=== PATIENT | female | born 1955 | race Caucasian/White ===

== ENCOUNTER 2022-10-21 07:56 | Emergency (ER) | payer MEDICARE, SELFPAY ==
[2022-10-21 08:10] VITALS: BP 138/56; PULSE 85; RESP 22; TEMP 37.1; O2SAT 97
--- NOTE | 2022-10-21 08:19 | ED_ITS ---
HPI - Abdominal Pain General: Chief Complaint: Abdominal Pain Stated Complaint: N/V, right side pain Time Seen by Provider: 10/21/22 08:08 Source: patient and family Mode of arrival: ambulatory Limitations: no limitations History of Present Illness: Patient is a 67-year-old male who presents to ED today with complaints of abdominal pain, nausea, vomiting that has been present over the past 3 to 4 day s. Patient states pain seems to be located to her right upper abdomen. She does not feel like this pain is affected by eating however admittedly has not ate a whole lot secondary to the nausea. No fevers but does report some chills. Denies changes in bowel movements but states she hasn't ate much to produce stool. Denies urinary symptoms. MD elicited complaint: abdominal pain and other (N/V) Pertinent past history: none Onset (ago): day(s) Pain Consistency: constant Location: Epigastric and RUQ Severity: moderate Quality: cramping and aching Radiation: none Migration to: no migration Exacerbating factors: nothing Relieving factors: nothing Associated Symptoms: Reports chills, nausea and vomiting; Denies change in bowel habits, diarrhea, dysuria, fever(s) and hematemesis Related Data: Patient : No Review of Systems Const: Reports: chills; Denies: fever(s), body aches, fatigue or malaise ENMT: Denies: throat pain, odynophagia, nasal discharge or nasal congestion Card: Denies: chest pain, swelling of feet/ankles or lightheadedness Resp: Denies: dyspnea, hemoptysis or chest congestion GI: Reports: abdominal pain, nausea and vomiting; Denies: hematemesis, diarrhea or change in bowel habits : Denies: flank pain, difficulty voiding, dysuria, urinary frequency or urinary urgency Musc: Denies: neck pain, back pain, extremity pain or joint pain Skin/Breast: Denies: rash Neuro: Denies: headache(s), numbness in extremities, weakness in extremities, sensory changes or difficulty walking PFS ED PFSH: Medical History Acquired scoliosis 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 Spondylosis Family History Mother CAD (coronary artery disease) Diabetes Hypertension Stroke Father CAD (coronary artery disease) Cancer Diabetes Grandfather Stroke Denies family history of Clotting disorder Dementia Hyperlipidemia Psychiatric illness Chronic kidney disease (CKD) Suicide Anesthesia complication Bleeding disorder Family history of premature coronary artery disease Lung disease Social History Smoking and tobacco status: current every day smoker Female Reproductive History: Spontaneous abortions: No Physical Exam Const: COMMON NORMALS: no acute distress, patient oriented x3, no limitations and alert GENERAL APPEARANCE: cooperative NUTRITIONAL APPEARANCE: cachectic and underweight (pts weight is 34 kg) ORIENTATION/CONSCIOUSNESS: Yes awake, Yes oriented to person, Yes oriented to place and Yes oriented to time HENMT: COMMON NORMALS: normocephalic and atraumatic HEAD & SCALP: normal to inspection, normocephalic and atraumatic Neck/C-Spine: GENERAL: Yes normal visual inspection Chest: COMMONS NORMALS: normal palpation of entire chest wall Resp: COMMON NORMALS: normal respiratory effort and clear to auscultation bilaterally AUSCULTATION: clear to auscultation bilaterally Cardio: COMMON NORMALS: regular rate and regular rhythm RATE: regular rate RHYTHM: regular rhythm GI: COMMON NORMALS: Normal to inspection, nondistended, normoactive bowel sounds present, Soft to palpation, No hepatosplenomegaly present and no masses INSPECTION: Yes normal to inspection AUSCULTATION: Yes normoactive bowel sounds PALPATION: Yes Soft to palpation, Yes Tenderness to palpation present (GI) (RUQ/epigastric ), No Guarding due to palpation present (GI), No Rigid due to palpation and Yes No hepatosplenomegaly present : COMMON NORMALS: Yes no CVA tenderness BLADDER/KIDNEY EXAM: Yes no CVA tenderness Back/Pelvis: COMMON NORMALS: no CVA tenderness Extremity: COMMON NORMALS: normal to inspection GENERAL: Yes normal exam except as noted Neuro: JORGE L COMA SCALE: document GCS findings Frierson coma scale eye opening: Spontaneous Jorge L coma scale verbal response: Orientated Frierson coma scale motor response: Obey commands Jorge L coma scale total score: 15 COMMON NORMALS: patient oriented x3 SENSORIUM/ORIENTATION: Yes alert, Yes oriented to person, Yes oriented to place and Yes oriented to time Skin: COMMON NORMALS: no rashes or lesions noted GENERAL SKIN EXAM: no rashes or lesions noted Course Vital Signs: Vital signs: Vital Signs Temperature 98.7 F 10/21/22 08:10 Pulse Rate 88 10/21/22 09:14 Respiratory Rate 22 H 10/21/22 08:10 Blood Pressure 149/48 10/21/22 09:57 Pulse Oximetry 98 10/21/22 09:57 Oxygen Delivery Me thod Room Air 10/21/22 09:57 MDM - Abdominal Pain Medical Decision Making Patient appears in no acute distress. Her vital signs are stable. Blood work overall is fairly unremarkable. She does have hematuria without evidence of infection. CT scan showing some mild fluid distention in her stomach and proximal small bowel with recommendations to correlate for gastroenteritis. This most likely is the etiology of her pain and nausea with vomiting. She was incidentally found to have bladder nodules that she will need a cystoscopy for to exclude neoplasm. She is an every day smoker so certainly she is at risk for bladder cancer. I think this most likely is where her hematuria is coming from. Patient herself has not noticed any gross hematuria at home. We will place the referral for case management to get her set up with urology. She will be discharged home with a prescription for Zofran. Recommend clear liquid diet and advance as tolerated. Recommend she follow-up with her PCP this week for reevaluation. Return ED precautions given. Lab Data 10/21/22 09:22 10/21/22 09:22 Labs/Radiology: Radiology Impressions Abdomen/Pelvis CT 10/21/22 08:29 IMPRESSION: 1. Nonvisualization of the gallbladder. No history of cholecystectomy provided. May be contracted due to nonfasting state. 2. Common bile duct is top normal to slightly enlarged. No obstruction identified otherwise. No intrahepatic dilatation. 3. Extensive atherosclerosis aorta. 4. Bilateral renal cysts. Cortical areas of thinning and scarring RIGHT kidney. 5. The appendix is not identified. 6. Mild fluid distention of the stomach and proximal small bowel. Correlate for gastroenteritis. 7. Intraluminal nodules projecting into the urinary bladder. Closely associated with the orifice of the ureters. The largest on the RIGHT measures 10 mm. Recommend cystoscopy to exclude neoplasm. Laboratory Results WBC 6.7 10^3/uL (4.0-10.0) 10/21/22 09:22 RBC 5.15 10^6/uL (4.1-5.3) 10/21/22 09:22 Hgb 14.6 g/dL (11.5-15.3) 10/21/22 09: Hct 43.0 % (37.0-47.0) 10/21/22 09: MCV 83.5 fl (81-99) 10/21/22 09: MCH 28.3 pg (28.0-34.0) 10/21/22 09: MCHC 34.0 g/dL (30.0-36.0) 10/21/22: RDW 13.4 % (12.1-15.1) 10/21/22 09: Plt Count 177 10^3/cmm (130-400) 10/21/22 09: MPV 10.7 fL (7.4-10.4) H 10/21/22 09: Neut % (Auto) 66.6 % 10/21/22 09: Lymph % (Auto) 23.3 % 10/21/22 09: [place] % (Auto) 9.9 % 10/21/22 09: Eos % (Auto) 0.1 % 10/21/22 09: Baso % (Auto) 0.0 % 10/21/22: Neut # (Auto) 4.48 10^3/uL (1.8-7.7) 10/21/22: Lymph # (Auto) 1.6 10^3/uL (0.8-4.8) 10/21/22 09: [place] # (Auto) 0.7 10^3/uL (0.2-0.9) 10/21/22: Eos # (Auto) 0.0 10^3/uL (0.0-0.8) 10/21/22 09: Baso # (Auto) 0.0 10^3/uL (0.0-0.1) 10/21/22: Nucleated RBC % (auto) 0 % 10/21/22: Nucleated RBCs # 0.0 /100WBC 10/21/22 09: Sodium 130 mmol/L (136-145) L 10/21/22 09: Potassium 3.5 mmol/L (3.5-5.1) 10/21/22 09: Chloride 89 mmol/L (98-107) L 04/17/23 09:22 Carbon Dioxide 27 mmol/L (22-29) 10/21/22 09:22 Anion Gap 17.5 (5-19) 10/21/22 09:22 BUN 27 mg/dL (8-23) H 10/21/22 09:22 Creatinine 0.5 mg/dL (0.5-0.9) 10/21/22 09:22 GFR Calculation 123.4 mL/min (90-130) 10/21/22 09:22 Glucose 137 mg/dL (65-115) H 10/21/22 09:22 Calculated Osmolality 277 mOsm/kg (285-295) L 10/21/22 09:22 Calcium 9.3 mg/dL (8.5-10.5) 10/21/22 09:22 Total Bilirubin 0.8 mg/dL (0.15-1.2) 10/21/22 09:22 AST 25 U/L (0-32) 10/21/22 09:22 ALT 21 U/L (0-33) 10/21/22 09:22 Alkaline Phosphatase 151 U/L (35-105) H 10/21/22 09:22 Total Protein 6.7 g/dL (6.6-8.7) 10/21/22 09:22 Albumin 3.6 g/dL (3.5-5.2) 10/21/22 09:22 Globulin 3.1 g/dL (1.3-4.6) 10/21/22 09:22 Lipase 36 U/L (13-60) 10/21/22 09:22 Urine Color Yellow (Yellow) 10/21/22 10:48 Urine Appearance Clear (CLEAR) 10/21/22 10:48 Urine pH 6 (5-7) 10/21/22 10:48 Ur Specific [place] 1.010 (1.005-1.030) 10/21/22 10:48 Urine Protein Neg (Negative) 10/21/22 10:48 Urine Glucose (UA) Norm (Normal) 10/21/22 10:48 Urine Ketones 1+ (Negative) H 10/21/22 10:48 Urine Blood 3+ (Negative) H 10/21/22 10:48 Urine Nitrate Negative (Negative) 10/21/22 10:48 Urine Bilirubin Neg (Negative) 10/21/22 10:48 Urine Urobilinogen Norm mg/dL (Negative) 10/21/22 10:48 Ur Leukocyte Esterase Negative (Negative) 10/21/22 10:48 Urine RBC 25-40 /hpf (0-2) H 10/21/22 10:48 Urine WBC 0-4 /hpf (0-5) H 10/21/22 10:48 Ur Squamous Epith Cells 0-4 /hpf (0-5) H 10/21/22 10:48 Amorphous Sediment Not Reportable 10/21/22 10:48 Urine Bacteria Trace /hpf (NONE) 10/21/22 10:48 Discharge Plan Discharge Patient Disposition: Home Clinical Impression: Lesion of bladder, Gastroenteritis Condition: Stable Prescriptions: New ondansetron 4 mg tablet,disintegrating 4 mg PO Q8H PRN (Reason: nausea and vomiting) Qty: 14 0RF No Action fluticasone propionate [Allergy Relief (fluticasone)] 50 mcg/actuation sp ray,suspension 1 spray intranasal BID Rx Instructions: Shake liquid and use 1 spray in each nostril twice daily Discharge Orders: Discharge ED (Routine); Ordered 10/21/22 Ordered By: Ema Bocanegra Referrals: Storm Menchaca DO [Primary Care Provider] - Patient Instructions: Gastroenteritis (DC) Activity Restrictions/Additional Instructions: As we discussed I recommend a clear liquid diet over the next 24 to 48 hours and advance as tolerated. Please follow-up with your primary care provider this week for reevaluation. You need to return to the emergency department for worsening or severe abdominal pains, repetitive episodes of vomiting, diarrhea, fevers, or any other concerns you may have. As we discussed your CT scan showed incidental findings of bladder nodules. Case management should contact you this week to help you set a urology follow-up appointment for cystoscopy and further evaluation of these. You need to return to the emergency department for inability to urinate. Coding Level of Care Code ED [employer] Operator for Aarti Yang
--- NOTE | 2022-10-21 08:29 | CT_ITS ---
WS: [id number] CT ABDOMEN AND PELVIS WITH CONTRAST HISTORY: RIGHT upper quadrant pain with nausea and vomiting. TECHNIQUE: Imaging performed of the abdomen and pelvis with IV contrast. Single phase imaging of the abdomen. Coronal and sagittal reformats are submitted. All CT scans at [facility] use at [address] one of these dose optimization techniques: automated exposure control; mA and/or kV adjustment per patient size (includes targeted exams where dose is matched to clinical indication); or iterative re construction. IV CONTRAST: Omnipaque 350; 100 mL IV. Oral contrast: No DLP: 260.44 mGy.cm COMPARISON: None available. Lower thorax: Lung bases are clear. Heart is normal size. Small hiatal hernia. Liver/biliary system: Normal size liver. Mild periportal edema. Common bile duct is mildly prominent than 9 mm but tapers normally. Gallbladder: Gallbladder is very difficult to identified. Dilated small bowel loops and large renal c ysts. Gallbladder may be contracted. No history of a prior cholecystectomy. Pancreas: Atrophied pancreas. No duct dilatation. Spleen: Normal size spleen with several granulomata. Adrenal glands: Normal. Right kidney: No renal obstruction. There are multiple cysts associated with the RIGHT kidney. Larges t cyst is partially exophytic extending laterally from the kidney measuring 4.4 x 4.3 cm. The additio nal areas of cortical thinning and scarring throughout the kidney. Nonobstructing 1.2 cm calcificatio n in the upper pole. Left kidney: Normal size kidney. Numerous cortical cysts. No obstruction. Aorta: Moderate atherosclerosis with no aneurysm. Extensive plaque with mild stenosis in the distal a juan ramon. No aneurysm. Calcified plaque extends into the iliac arteries. Lymphadenopathy: None. Free fluid: None. GI tract: Limited evaluation of the GI tract without IV contrast. Very little fat the loop s of GI tract. Stomach is normally distended. Fluid-filled loops of small bowel. Proximal duodenum is fluid-filled. No obstructive pattern. Mild air distention of the colon with overlapping loops. The a ppendix is not identified. Abdominal wall: Unremarkable abdominal wall. No hernia. Pelvis: Urinary bladder is well distended. Small nodules protrude into the urinary bladder. These are at the base of the expected location of the ureters. The largest on the RIGHT measures 10 mm. Uterus and ovaries are not identified. No prior surgical history was provided. Bones: Minimal curvature lumbar spine. CT/CT abdomen pelvis w con* [id number] IMPRESSION: 1. Nonvisualization of the gallbladder. No history of cholecystectomy provided . May be contracted due to nonfasting state. 2. Common bile duct is top normal to slightly enlarged. No obstruction identif ied otherwise. No intrahepatic dilatation. 3. Extensive atherosclerosis aorta. 4. Bilateral renal cysts. Cortical areas of thinning and scarring RIGHT kidney . 5. The appendix is not identified. 6. Mild fluid distention of the stomach and proximal small bowel. Correlate fo r gastroenteritis. 7. Intraluminal nodules projecting into the urinary bladder. Closely associate d with the orifice of the ureters. The largest on the RIGHT measures 10 mm. Rec ommend cystoscopy to exclude neoplasm.
[2022-10-21] MEDS: ondansetron 2 mg/ML SDV 2 mL IVP (09:10)
[2022-10-21] MEDS: morphine 4 mg/mL SDV 1 mL 2 MG IVP (09:11)
[2022-10-21] MEDS: sodium chloride 0.9% 500 ML IV (09:13)
[2022-10-21 09:14] VITALS: BP 150/53; PULSE 88; O2SAT 95
[2022-10-21 09:28] LABS: Eosinophils % 0.1 %; Hemoglobin 14.6 g/dL (11.5-15.3); Lymphocytes # 1.6 10^3/uL (0.8-4.8); Lymphocytes % 23.3 %; Mean Corpuscular Hemoglobin 28.3 pg (28.0-34.0); Mean Corpuscular Volume 83.5 fl (81-99); Mean Platelet Volume 10.7 fL (7.4-10.4); Monocytes # 0.7 10^3/uL (0.2-0.9); Monocytes % 9.9 %; Neutrophils # 4.48 10^3/uL (1.8-7.7); Neutrophils % 66.6 %; Nucleated Red Blood Cells % 0 %; Platelet Count 177 10^3/cmm (130-400); Red Blood Count 5.15 10^6/uL (4.1-5.3); Red Cell Distribution Width 13.4 % (12.1-15.1); White Blood Count 6.7 10^3/uL (4.0-10.0)
[2022-10-21 09:44] LABS: Alanine Aminotransferase 21 U/L (0-33); Albumin Level 3.6 g/dL (3.5-5.2); Alkaline Phosphatase 151 U/L (35-105); Blood Urea Nitrogen 27 mg/dL (8-23); Calcium 9.3 mg/dL (8.5-10.5); Carbon Dioxide 27 mmol/L (22-29); Chloride 89 mmol/L (98-107); Globulin 3.1 g/dL (1.3-4.6); Glomerular Filtration Rate 123.4 mL/min (90-130); Glucose 137 mg/dL (65-115); Lipase 36 U/L (13-60); Osmolality Calculated 277 mOsm/kg (285-295); Sodium 130 mmol/L (136-145); Total Bilirubin 0.8 mg/dL (0.15-1.2); Total Protein 6.7 g/dL (6.6-8.7)
[2022-10-21 09:49] LABS: Anion Gap 17.5 (5-19); Aspartate Amino Transferase 25 U/L (0-32); Potassium 3.5 mmol/L (3.5-5.1)
[2022-10-21 09:57] VITALS: BP 149/48; O2SAT 98
[2022-10-21] MEDS: iohexol 350 mg/mL 500 mL Btl (per mL) IV (10:13)
[2022-10-21 11:17] LABS: Glucose Urine UA Norm (Normal); Protein Urine Neg (Negative); Urine Appearance Clear (CLEAR); Urine Color Yellow (Yellow); pH Urine 6 (5-7)
[2022-10-21 11:18] LABS: Bilirubin Urine Neg (Negative); Blood Urine 3+ (Negative); Ketones Urine 1+ (Negative); Leukocyte Esterase Urine Negative (Negative); Nitrate Urine Negative (Negative); Urobilinogen Urine Norm (Negative)
[2022-10-21 11:20] LABS: Add Urine Microscopic? YES; RBC Urine 25-40 /hpf (0-2)
[2022-10-21 11:21] LABS: Add Urine Culture? Yes; Bacteria Urine TRACE /hpf; Squamous Epithelial Cell Urine 0-4 /hpf (0-5); WBC Urine 0-4 /hpf (0-5)
[2022-10-21 11:56] VITALS: BP 149/50; O2SAT 96
--- NOTE | 2022-10-22 09:52 | DCPLANNER ---
Addendum entered by Nickie Jimenez 10/23/22 08:22: manager of quality received the following message from the urology front office staff regarding follow up appointment: Probably should send to Urology elsewhere. manager of quality called patient to inform patient of this, nurse case management called phone number [phone] - this number is not in service. Original Note: manager of quality had message to schedule a follow up appointment for patient with urology. manager of quality sent patients information to the front office staff at urology. Patients information will be printed and reviewed. Clinic will call patient with appointment information.
== END 2022-10-21 11:57 | disposition home or self-care (01) ==
PROVIDERS: Emergency Provider Physician Assistant; PCP Family Medicine
DX: K52.9 Noninfective gastroenteritis and colitis, unspecified (principal); N32.9 Bladder disorder, unspecified; F17.210 Nicotine dependence, cigarettes, uncomplicated
CPT/HCPCS: 74177; 80053; 81001; 83690; 85025; 87086; 96374; 96375; 99285; J2270; J2405; J7040; Q9967

== ENCOUNTER 2022-11-19 00:25 | Emergency (ER) | payer MEDICARE, SELFPAY ==
[2022-11-19 00:26] VITALS: BMI 18.3
--- NOTE | 2022-11-19 00:27 | XRR_ITS ---
PROCEDURE INFORMATION: Exam: XR Chest Exam date and time: 11/19/2022 12:49 AM Age: 67 years old Clinical indication: Chest pressure; Patient HX: C/O chest pain; Additional info: Cp TECHNIQUE: Imaging protocol: Radiologic exam of the chest. Views: 1 view. COMPARISON: CT abdomen pelvis w con* [id number] 10/21/2022 10:09 AM FINDINGS: Lungs: Emphysema. No consolidation. Pleural spaces: Unremarkable. No pleural effusion. No pneumothorax. Heart/Mediastinum: Unremarkable. No cardiomegaly. Bones/joints: Unremarkable. XR/XR chest 1V portable [id number] IMPRESSION: Negative for acute chest pathology.
--- NOTE | 2022-11-19 00:28 | ECG_ITS ---
[facility] Test Date: 2022-11-19 Pat Name: Aiyana Champion Department: Room: Gender: Female [employer] Clerk: : [id number] Requested By: Maame Landry Order Number: [id number] Jo MD: Stan Daniel M.D. Measurements Intervals [place] Rate: 109 P: 86 IL: 141 QRS: 62 QRSD: 77 T: -30 QT: 275 QTc: 372 Interpretive Statements SINUS TACHYCARDIA RIGHT ATRIAL ENLARGEMENT [0.3mV P-WAVE] LEFT ATRIAL ENLARGEMENT [-0.15mV P-WAVE IN V1/V2] POSSIBLE LEFT VENTRICULAR HYPERTROPHY [VOLTAGE CRITERIA PLUS LAE OR QRS WIDENING] POSSIBLE SEPTAL MYOCARDIAL INFARCTION , OF INDETERMINATE AGE [30 ms Q WAVE IN V1/V2] No previous ECG available for comparison Electronically Signed On 11-19-2022 16:56:07 CDT by Stan Daniel M.D. [email or web address]
[2022-11-19 00:29] VITALS: BP 136/55; PULSE 109; RESP 16; TEMP 37.1; O2SAT 99
--- NOTE | 2022-11-19 00:38 | ED_ITS ---
HPI - Chest Pain General: Chief Complaint: Chest Pain Stated Complaint: CHEST PAIN Time Seen by Provider: 11/19/22 00:27 History of Present Illness: 67-year-old female comes in today with complaints of chest pain for the last 2 hours. Patient reports nothing made the pain better or worsened. Patient reports the nitro that the EMS personnel did help. Patient reports that she had an episode of chest pain about 30 years ago that showed abnormality on her EKG but she was not diagnosed with heart problem at that time. Patient has chronic pain syndrome which she takes OxyContin 40 mg twice a day for. Patient's chronic pain is related to OPLL. Patient also reports that she has fibromyalgia. Patient is a daily smoker of tobacco. Patient denies lung disease. Patient's had a hysterectomy. 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 Spondylosis Family History Mother CAD (coronary artery disease) Diabetes Hypertension Stroke Father CAD (coronary artery disease) Cancer Diabetes Grandfather Stroke Denies family history of Clotting disorder Dementia Hyperlipidemia Psychiatric illness Chronic kidney disease (CKD) Suicide Anesthesia complication Bleeding disorder Family history of premature coronary artery disease Lung disease Social History Smoking and tobacco status: current every day smoker Female Reproductive History: Spontaneous abortions: No Physical Exam Const: COMMON NORMALS: alert HENMT: COMMON NORMALS: normocephalic HEAD & SCALP: normocephalic Neck/C-Spine: COMMON NORMALS: full ROM Resp: COMMON NORMALS: normal respiratory effort and clear to auscultation bilaterally AUSCULTATION: clear to auscultation bilaterally Cardio: COMMON NORMALS: regular rate and regular rhythm RATE: regular rate RHYTHM: regular rhythm GI: COMMON NORMALS: Soft to palpation and non-tender PALPATION: Yes Soft to palpation Extremity: COMMON NORMALS: no pedal edema Neuro: SENSORIUM/ORIENTATION: Yes alert Skin: COMMON NORMALS: turgor normal GENERAL SKIN EXAM: turgor normal Course Vital Signs: Vital signs: Vital Signs Temperature 98.8 F 11/19/22 00:29 Pulse Rate 102 H 11/19/22 00:59 Respiratory Rate 22 H 11/19/22 02:35 Blood Pressure 136/55 11/19/22 00:59 Pulse Oximetry 98 11/19/22 00:59 Oxygen Delivery Me thod Room Air 11/19/22 00:29 MDM - Chest Pain Medical Decision Making Patient comes in tonight for complaints of chest discomfort starting about 2 hours prior to arrival to the ER. Patient was given nitro in route to the ER and stated some improvement in pain. Patient appears nontoxic. Respirations are even lungs are clear to auscultation. Vital signs are normal except for some elevation in pulse at 110. Differential diagnosis includes ACS, pulmonary embolism, pneumonia, electrolyte imbalance. CBC was unremarkable. CMP noted decrease in potassium at 2.6. Chest x-ray was unremarkable. D-dimer was elevated at 0.87. CTA of the chest was then performed and noted no pulmonary embolism. Initial troponin was 8, second troponin went to 10.5. I reviewed this with Dr. Landry who felt the patient could go home and she felt comfortable. We believe that patient's pain is most likely due to her low potassium at 2.6. Patient was given 2 doses of 40 mEq of potassium orally in the ER 1 hour apart. Patient be continued on oral potassium at home and recommend follow-up with primary care in 1 week for recheck. Patient and family both reported understanding. Lab Data 11/19/22 00:33 11/19/22 00:33 Radiology Impressions Chest X-Ray 11/19/22 00:27 IMPRESSION: Negative for acute chest pathology. Chest CTA 11/19/22 01:37 IMPRESSION: Negative CTA chest. No acute pathology. COMMENTS: In the absence of a history or active diagnosis of lung cancer, it is recommended that this patient with emphysema be evaluated for enrollment in a low dose CT lung cancer screening program. Laboratory Results WBC 7.5 10^3/uL (4.0-10.0) 11/19/22 00:33 RBC 4.63 10^6/uL (4.1-5.3) 11/19/22 00:33 Hgb 12.8 g/dL (11.5-15.3) 11/19/22 00:33 Hct 39.4 % (37.0-47.0) 11/19/22 00:33 MCV 85.1 fl (81-99) 11/19/22 00:33 MCH 27.6 pg (28.0-34.0) L 11/19/22 00:33 MCHC 32.5 g/dL (30.0-36.0) 11/19/22 00:33 RDW 14.5 % (12.1-15.1) 11/19/22 00:33 Plt Count 204 10^3/cmm (130-400) 11/19/22 00:33 MPV 10.2 fL (7.4-10.4) 11/19/22 00:33 Neut % (Auto) 64.9 % 11/19/22 00:33 Lymph % (Auto) 25.5 % 11/19/22 00:33 [place] % (Auto) 8.5 % 11/19/22 00:33 Eos % (Auto) 0.3 % 11/19/22 00:33 Baso % (Auto) 0.4 % 11/19/22 00:33 Neut # (Auto) 4.89 10^3/uL (1.8-7.7) 11/19/22 00:33 Lymph # (Auto) 1.9 10^3/uL (0.8-4.8) 11/19/22 00:33 [place] # (Auto) 0.6 10^3/uL (0.2-0.9) 11/19/22 00:33 Eos # (Auto) 0.0 10^3/uL (0.0-0.8) 11/19/22 00:33 Baso # (Auto) 0.0 10^3/uL (0.0-0.1) 11/19/22 00:33 Nucleated RBC % (auto) 0 % 11/19/22 00:33 Nucleated RBCs # 0.0 /100WBC 11/19/22 00:33 D-Dimer 0.83 ug/mIFEU (0-0.59) H 11/19/22 00:33 Sodium 142 mmol/L (136-145) 11/19/22 00:33 Potassium 2.6 mmol/L (3.5-5.1) L* 11/19/22 00:33 Chloride 104 mmol/L (98-107) 11/19/22 00:33 Carbon Dioxide 24 mmol/L (22-29) 11/19/22 00:33 Anion Gap 16.6 (5-19) 11/19/22 00:33 BUN 7 mg/dL (8-23) L 11/19/22 00:33 Creatinine 0.4 mg/dL (0.5-0.9) L 11/19/22 00:33 GFR Calculation 159.7 mL/min (90-130) H 11/19/22 00:33 Glucose 125 mg/dL (65-115) H 11/19/22 00:33 Calculated Osmolality 293 mOsm/kg (285-295) 11/19/22 00:33 Calcium 9.3 mg/dL (8.5-10.5) 11/19/22 00:33 Total Bilirubin 0.5 mg/dL (0.15-1.2) 11/19/22 00:33 AST 69 U/L (0-32) H 11/19/22 00:33 ALT 30 U/L (0-33) 11/19/22 00:33 Alkaline Phosphatase 232 U/L (35-105) H 11/19/22 00:33 Troponin T Baseline 8 ng/L (0-10) 11/19/22 00:33 Troponin T 120 Minute 10.05 ng/L (0-10) H 11/19/22 02:26 Delta Troponin T 2.05 ABS# (0-10) 11/19/22 02:26 Total Protein 6.8 g/dL (6.6-8.7) 11/19/22 00:33 Albumin 3.7 g/dL (3.5-5.2) 11/19/22 00:33 Globulin 3.1 g/dL (1.3-4.6) 11/19/22 00:33 Lipase 33 U/L (13-60) 11/19/22 00:33 EKG Data EKG 1: EKG interpretation date: 11/19/22 EKG interpretation time: 00:32 Prior EKG tracings: not available for review Interpretation: EKG shows a sinus tachycardia with a rate of 109 bpm and regular. No obvious ST elevation is noted. No ectopy is noted. No prior exam was available for comparison. Discharge Plan Discharge Patient Disposition: Home Clinical Impression: Hypokalemia Chest pain Qualifiers: Chest pain type: other chest pain Qualified Code(s): R07.89 - Other chest pain Condition: Stable Prescriptions: New potassium chloride 10 mEq capsule, extended release 10 meq PO BID Qty: 14 0RF nitroglycerin 0.4 mg tablet, sublingual 0.4 mg sublingual Q5M PRN (Reason: chest pain) Qty: 25 1RF Rx Instructions: do not exceed 3 doses per episode No Action fluticasone propionate [Allergy Relief (fluticasone)] 50 mcg/actuation spray,suspension 1 spray intranasal BID Rx Instructions: Shake liquid and use 1 spray in each nostril twice daily ondansetron 4 mg tablet,disintegrating 4 mg PO Q8H PRN (Reason: nausea and vomiting) Qty: 14 0RF Discharge Orders: Discharge ED (Routine); Ordered 11/19/22 Ordered By: Kush Valentine Referrals: Storm Menchaca DO [Primary Care Provider] - Discharge Diet: Usual diet Discharge Activity: Increase activity as tolerated Patient Instructions: Hypokalemia (ED), Opioid Safety, Pain Management Activity Restrictions/Additional Instructions: Healthy diet and activity. Drink plenty of water and fluids with medications. Follow-up with primary care in 1 week for recheck of blood. Return to ER for worsening symptoms or new concerns. Coding Level of Care Code ED Transition Specialist for Aarti Yang
[2022-11-19 00:41] LABS: Basophils % 0.4 %; Eosinophils % 0.3 %; Hematocrit 39.4 % (37.0-47.0); Hemoglobin 12.8 g/dL (11.5-15.3); Lymphocytes # 1.9 10^3/uL (0.8-4.8); Lymphocytes % 25.5 %; Mean Corpuscular HGB Conc 32.5 g/dL (30.0-36.0); Mean Corpuscular Hemoglobin 27.6 pg (28.0-34.0); Mean Corpuscular Volume 85.1 fl (81-99); Mean Platelet Volume 10.2 fL (7.4-10.4); Monocytes # 0.6 10^3/uL (0.2-0.9); Monocytes % 8.5 %; Neutrophils # 4.89 10^3/uL (1.8-7.7); Neutrophils % 64.9 %; Nucleated Red Blood Cells % 0 %; Platelet Count 204 10^3/cmm (130-400); Red Blood Count 4.63 10^6/uL (4.1-5.3); Red Cell Distribution Width 14.5 % (12.1-15.1); White Blood Count 7.5 10^3/uL (4.0-10.0)
[2022-11-19 00:59] VITALS: BP 136/55; PULSE 102; RESP 16; O2SAT 98
[2022-11-19] MEDS: nitroglycerin 1 gm/inch oint Pkt 1 INCH TOPICAL (00:59)
[2022-11-19 01:04] LABS: Alanine Aminotransferase 30 U/L (0-33); Albumin Level 3.7 g/dL (3.5-5.2); Alkaline Phosphatase 232 U/L (35-105); Anion Gap 16.6 (5-19); Aspartate Amino Transferase 69 U/L (0-32); Blood Urea Nitrogen 7 mg/dL (8-23); Calcium 9.3 mg/dL (8.5-10.5); Carbon Dioxide 24 mmol/L (22-29); Chloride 104 mmol/L (98-107); Globulin 3.1 g/dL (1.3-4.6); Glomerular Filtration Rate 159.7 mL/min (90-130); Glucose 125 mg/dL (65-115); Lipase 33 U/L (13-60); Osmolality Calculated 293 mOsm/kg (285-295); Sodium 142 mmol/L (136-145); Total Bilirubin 0.5 mg/dL (0.15-1.2); Total Protein 6.8 g/dL (6.6-8.7)
[2022-11-19 01:08] LABS: Troponin(5th) Baseline 8 ng/L (0-10)
[2022-11-19 01:26] LABS: Potassium 2.6 mmol/L (3.5-5.1)
[2022-11-19 01:35] LABS: D Dimer 0.83 ug/mIFEU (0-0.59)
--- NOTE | 2022-11-19 01:37 | CTR_ITS ---
PROCEDURE INFORMATION: Exam: CTA Chest With Contrast Exam date and time: 11/19/2022 1:49 AM Age: 67 years old Clinical indication: Pain and abnormal findings; Abnormal diagnostic tests; Elevated d-dimer; Chest pressure; Patient HX: C/O chest pain with d dimer of 0.83. ; Additional info: Chest pain, R/O pe TECHNIQUE: Imaging protocol: Computed tomographic angiography of the chest with contrast. 3D rendering (Not supervised by radiologist): MIP and/or 3D reconstructed images were created by the technologist. Radiation optimization: All CT scans at this facility use at least one of these dose optimization techniques: automated exposure control; mA and/or kV adjustment per patient size (includes targeted exams where dose is matched to clinical indication); or iterative reconstruction. Contrast material: OMNI 350; Contrast volume: 51 ml; Contrast route: INTRAVENOUS (IV); REPORTING DATA: Count of CT and Cardiac NM exams in prior 12 months: This patient has received [address] and 0 known cardiac nuclear medicine studies in the 12 months prior to the current study. COMPARISON: CR (CHEST, ) 11/19/2022 12:49 AM RADIATION DOSE METRICS: Total DLP (mGy-cm): 150.92 FINDINGS: Pulmonary arteries: Normal. No pulmonary emboli. Aorta: Unremarkable. No aortic aneurysm. No aortic dissection. Lungs: Calcified subcarinal space granulomas. Centrilobular emphysema. Hyperinflation. Negative for endobronchial obstruction. Bronchial wall thickening. Negative for pulmonary consolidation. Negative for pulmonary mass. Reticular changes of interstitium. Calcified posterior right lower lobe pulmonary granuloma. Pleural spaces: Unremarkable. No pneumothorax. No pleural effusion. Heart: Unremarkable. No cardiomegaly. No pericardial effusion. Mediastinal space: Unremarkable thoracic esophagus. Small calcified right hilar granulomas. Lymph nodes: Negative for mediastinal lymphadenopathy. Bones/joints: Unremarkable. No acute fracture. Soft tissues: Unremarkable. CT/CT angio chest PE protcl [id number] IMPRESSION: Negative CTA chest. No acute pathology. COMMENTS: In the absence of a history or active diagnosis of lung cancer, it is recommended that this patient with emphysema be evaluated for enrollment in a low dose CT lung cancer screening program.
[2022-11-19] MEDS: potassium chloride oral liq 20 mEq/15 mL UDC 40 MEQ PO (01:42)
[2022-11-19 02:00] VITALS: BP 137/82; PULSE 102; RESP 23; O2SAT 98
[2022-11-19] MEDS: iohexol 350 mg/mL 500 mL Btl (per mL) IV (02:01)
--- NOTE | 2022-11-19 02:32 | ECG_ITS ---
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 Measurements Intervals [place] Rate: 102 P: 81 NE: 144 QRS: 62 QRSD: 73 T: 66 QT: 354 QTc: 462 Interpretive Statements SINUS TACHYCARDIA RIGHT ATRIAL ENLARGEMENT [0.3mV P-WAVE] LEFT ATRIAL ENLARGEMENT [-0.15mV P-WAVE IN V1/V2] SEPTAL MYOCARDIAL INFARCTION , OF INDETERMINATE AGE [40+ ms Q WAVE IN V1/V2] Compared to ECG 11/19/2022 00:31:37 No significant changes Electronically Signed On 11-19-2022 16:59:33 CDT by Stan Daniel M.D. [id number]
[2022-11-19 02:35] VITALS: RESP 22
[2022-11-19] MEDS: oxyCODONE-APAP 5-325 mg Tablet 1 TAB PO (02:35)
[2022-11-19 02:52] LABS: Troponin 5 2HR 10.05 ng/L (0-10)
[2022-11-19 02:55] LABS: Troponin 5 2HR Delta 2.05 ABS# (0-10)
[2022-11-19 02:59] VITALS: BP 159/54; PULSE 100; RESP 22; O2SAT 97
[2022-11-19] MEDS: potassium chloride ER 20 mEq Tablet 40 MEQ PO (03:04)
== END 2022-11-19 03:12 | disposition home or self-care (01) ==
PROVIDERS: Emergency Medicine; Emergency Provider Nurse Practitioner Family; PCP Family Medicine
DX: R07.89 Other chest pain (principal); E87.6 Hypokalemia; F17.210 Nicotine dependence, cigarettes, uncomplicated
CPT/HCPCS: 71045; 71275; 80053; 83690; 84484; 85025; 85378; 93005; 99285; Q9967

== ENCOUNTER 2022-11-19 11:18 | Inpatient (IN) | payer MEDICARE, SELFPAY ==
[2022-11-19] VITALS (11 sets, daily range): BP systolic 162–184; BP diastolic 56–76; PULSE 80–120; RESP 14–18; TEMP 36.7–36.9; O2SAT 92–98; BMI 14.5
--- NOTE | 2022-11-19 11:26 | XRR_ITS ---
PROCEDURE INFORMATION: Exam: XR Chest Exam date and time: 11/19/2022 12:21 PM Age: 67 years old Clinical indication: Pain; Angina pectoris; Additional info: Chest pain TECHNIQUE: Imaging protocol: Radiologic exam of the chest. Views: 1 view. COMPARISON: CR (CHEST, ) 11/19/2022 12:49 AM FINDINGS: Lungs: Unremarkable. No consolidation. Pleural spaces: Unremarkable. No pleural effusion. No pneumothorax. Heart/Mediastinum: Unremarkable. No cardiomegaly. Bones/joints: Unremarkable. XR/XR chest 1V portable [id number] IMPRESSION: No acute findings.
--- NOTE | 2022-11-19 11:26 | ECG_ITS ---
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 Measurements Intervals [place] Rate: 100 P: 149 WI: 167 QRS: 108 QRSD: 73 T: 91 QT: 379 QTc: 489 Interpretive Statements SINUS TACHYCARDIA ARM LEADS REVERSED [INVERTED P AND QRS IN I] Compared to ECG 11/19/2022 02:32:52 Atrial abnormality no longer present Myocardial infarct finding no longer present Electronically Signed On 11-19-2022 16:53:30 CDT by Stan Daniel M.D. [id number]
[2022-11-19 12:57] LABS: Basophils % 0.2 %; Hematocrit 40.5 % (37.0-47.0); Hemoglobin 13.1 g/dL (11.5-15.3); Lymphocytes # 1.1 10^3/uL (0.8-4.8); Lymphocytes % 13.6 %; Mean Corpuscular HGB Conc 32.3 g/dL (30.0-36.0); Mean Corpuscular Hemoglobin 27.3 pg (28.0-34.0); Mean Corpuscular Volume 84.6 fl (81-99); Mean Platelet Volume 10.5 fL (7.4-10.4); Monocytes # 0.3 10^3/uL (0.2-0.9); Monocytes % 4.1 %; Neutrophils # 6.84 10^3/uL (1.8-7.7); Neutrophils % 81.9 %; Nucleated Red Blood Cells % 0 %; Platelet Count 207 10^3/cmm (130-400); Red Blood Count 4.79 10^6/uL (4.1-5.3); Red Cell Distribution Width 14.6 % (12.1-15.1); White Blood Count 8.4 10^3/uL (4.0-10.0)
[2022-11-19 13:15] LABS: Alanine Aminotransferase 135 U/L (0-33); Albumin Level 3.9 g/dL (3.5-5.2); Alkaline Phosphatase 303 U/L (35-105); Anion Gap 18.6 (5-19); Aspartate Amino Transferase 135 U/L (0-32); Blood Urea Nitrogen 13 mg/dL (8-23); Calcium 9.1 mg/dL (8.5-10.5); Carbon Dioxide 25 mmol/L (22-29); Chloride 102 mmol/L (98-107); Globulin 2.9 g/dL (1.3-4.6); Glomerular Filtration Rate 222.6 mL/min (90-130); Glucose 149 mg/dL (65-115); Osmolality Calculated 297 mOsm/kg (285-295); Potassium 3.6 mmol/L (3.5-5.1); Sodium 142 mmol/L (136-145); Total Bilirubin 1.1 mg/dL (0.15-1.2); Total Protein 6.8 g/dL (6.6-8.7)
[2022-11-19 13:17] LABS: Troponin(5th) Baseline 9 ng/L (0-10)
--- NOTE | 2022-11-19 13:26 | ECG_ITS ---
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 Measurements Intervals [place] Rate: 106 P: 0 SC: 0 QRS: -7 QRSD: 72 T: 30 QT: 355 QTc: 471 Interpretive Statements SINUS TACHYCARDIA VOLTAGE CRITERIA FOR LVH [MEETS CRITERIA IN ONE OF: R(aVL), S(V1), R(V5), R(V5/V6)+S(V1)] POSSIBLE SEPTAL MYOCARDIAL INFARCTION , OF INDETERMINATE AGE [30 ms Q WAVE IN V1/V2] Compared to ECG 11/19/2022 11:41:19 Left ventricular hypertrophy now present Myocardial infarct finding now present Electronically Signed On 11-19-2022 16:57:38 CDT by Stan Daniel M.D. [id number]
--- NOTE | 2022-11-19 14:01 | US_ITS ---
WS: [id number] RIGHT UPPER QUADRANT ULTRASOUND HISTORY: transaminitis COMPARISON: None available. Liver: 10.1 cm in length. Normal size liver and echogenicity. No bile duct dilatation or mass. Portal Vein: Normal hepatopetal flow with monophasic waveform. Gallbladder: Abnormal gallbladder. Layering stones and sludge and hydropic gallbladder. On a recent C T it was difficult to identify the gallbladder. Now after reviewing the CT with the ultrasound the ga llbladder is noted hydropic with layering stones and sludge also. Gallbladder wall measures up to 4 m m. CBD: 0.4 cm Pancreas: Normal size and echogenicity. Right kidney: 9.7 cm in length. Normal size and echogenicity. No hydronephrosis or mass. Aorta and IVC: Unremarkable abdominal aorta and IVC. No ascites. US/US gall bladder [id number] IMPRESSION: 1. Hydropic gallbladder with layering stones and sludge. Mild gallbladder wall thickening. Gallbladder was difficult to identify on the prior CT. In hindsigh t the gallbladder is present and does contain some stones and sludge also. No p ericholecystic fluid. 2. The common bile duct is not dilated.
--- NOTE | 2022-11-19 14:01 | ED_ITS ---
HPI - General Adult General: Chief complaint: General Medical Stated complaint: N/V High BP, High HR Time Seen by Provider: 11/19/22 13:43 Source: patient Mode of arrival: ambulatory History of Present Illness: 67-year-old female presents emergency room complaining of right upper quadrant abdominal pain. She was seen overnight her alk phos is slightly elevated which it has been in the past. She is cachectic in appearance. She has a history of smoking. She is not on any long-term inhaled medications. She has lost quite a bit of weight over the last several years. She has had nausea and vomiting. She also had some accompanying diarrhea. She had several episodes of this in the past as well as CT abdomen pelvis was done in October did not have any significant findings. CTA done overnight was negative. Primary complaint in her first visit earlier today was chest discomfort it is localized now more to the right upper quadrant pain radiates into her back as well she denies dysuria urgency or frequency. Onset (ago): hour(s) Location: abdomen Radiation: back Severity: moderate Quality: aching Relieving factors: none Exacerbating factors: none Associated symptoms: Reports decreased appetite, malaise, nausea and vomiting; Deny chest pain, confusion, cough, diaphoresis, dyspnea, fevers/chills, headache(s), rash, palpitations, seizures, short of breath, syncope or weakness Review of Systems Const: Reports: fatigue and malaise; Denies: fever(s), chills or diaphoresis ENMT: Denies: throat pain, ear or mastoid pain, nasal discharge or nasal congestion Card: Denies: chest pain, palpitations or syncope Resp: Denies: dyspnea GI: Reports: abdominal pain, nausea and vomiting; Denies: hematemesis or diarrhea : Denies: flank pain, difficulty voiding, dysuria, urinary frequency or urinary urgency Skin/Breast: Denies: rash Neuro: Denies: headache(s) or confusion PFSH ED PFSH: Medical History (Updated 11/19/22 @ 17:38 by Kelechi Coker DO) Acquired scoliosis 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 Arthritis 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 Spondylosis Surgical History (Updated 11/19/22 @ 17:38 by Mat Barragan MD) H/O total hysterectomy History of adenoidectomy Hx of tonsillectomy Family History Mother CAD (coronary artery disease) Diabetes Hypertension Stroke Father CAD (coronary artery disease) Cancer Diabetes Grandfather Stroke Denies family history of Clotting disorder Dementia Hyperlipidemia Psychiatric illness Chronic kidney disease (CKD) Suicide Anesthesia complication Bleeding disorder Family history of premature coronary artery disease Lung disease Social History Smoking and tobacco status: current every day smoker Female Reproductive History: Spontaneous abortions: No Physical Exam Const: GENERAL APPEARANCE: cooperative and comfortable ORIEN TATION/CONSCIOUSNESS: Yes awake, Yes oriented to person, Yes oriented to place and Yes oriented to time HENMT: COMMON NORMALS: normocephalic, atraumatic and hearing grossly normal bilaterally HEAD & SCALP: normocephalic and atraumatic Resp: COMMON NORMALS: normal respiratory effort, No retractions, No use of accessory muscles and clear to auscultation bilaterally AUSCULTATION: clear to auscultation bilaterally Cardio: COMMON NORMALS: regular rate, regular rhythm and No murmurs present (Cardio) RATE: regular rate RHYTHM: regular rhythm GI: COMMON NORMALS: No hepatosplenomegaly present AUSCULTATION: Yes normoactive bowel sounds PALPATION: Yes Tenderness to palpation present (GI) Details: RUQ, No Guarding due to palpation present (GI) and Yes No hepatosplenomegaly present : COMMON NORMALS: Yes no CVA tenderness BLADDER/KIDNEY EXAM: Yes no CVA tenderness Back/Pelvis: COMMON NORMALS: no CVA tenderness Extremity: COMMON NORMALS: normal to inspection, capillary refill normal, no clubbing, cyanosis or edema, no calf tenderness and no pedal edema Neuro: SENSORIUM/ORIENTATION: Yes oriented to person, Yes oriented to place and Yes oriented to time Skin: COMMON NORMALS: no rashes or lesions noted GENERAL SKIN EXAM: no rashes or lesions noted Course Vital Signs: Vital signs: Vital Signs Temperature 98.1 F 11/19/22 11:40 Pulse Rate 120 H 11/19/22 17:32 Respiratory Rate 17 11/19/22 17:24 Blood Pressure 162/66 11/19/22 17:32 Pulse Oximetry 92 11/19/22 17:32 Oxygen Delivery Me thod Room Air 11/19/22 17:32 MDM - General Adult Medical Decision Making Liver enzymes elevated common bile duct on room is not dilated. T. bili is normal. There is hydrops and thickening of the gallbladder wall significant elevation from earlier today when she was seen. Discussed Dr. Bliss will admit for acute cholecystitis started on Zosyn pain medications have been given. Discussed Dr. Barragan he will consult for medical issues patient has COPD per the CTA that was done overnight additionally has some significant unexplained weight loss may be related to her COPD or Medical Records I reviewed the patient's medical records. Lab Data I reviewed the patient's lab results. 11/19/22 12:38 11/19/22 12:38 Radiology Impressions Chest X-Ray 11/19/22 11:26 IMPRESSION: No acute findings. Gallbladder Ultrasound 11/19/22 14:01 IMPRESSION: 1. Hydropic gallbladder with layering stones and sludge. Mild gallbladder wall thickening. Gallbladder was difficult to identify on the prior CT. In hindsight the gallbladder is present and does contain some stones and sludge also. No pe richolecystic fluid. 2. The common bile duct is not dilated. Laboratory Results WBC 8.4 10^3/uL (4.0-10.0) 11/19/22 12:38 RBC 4.79 10^6/uL (4.1-5.3) 11/19/22 12:38 Hgb 13.1 g/dL (11.5-15.3) 11/19/22 12:38 Hct 40.5 % (37.0-47.0) 11/19/22 12:38 MCV 84.6 fl (81-99) 11/19/22 12:38 MCH 27.3 pg (28.0-34.0) L 11/19/22 12:38 MCHC 32.3 g/dL (30.0-36.0) 11/19/22 12:38 RDW 14.6 % (12.1-15.1) 11/19/22 12:38 Plt Count 207 10^3/cmm (130-400) 11/19/22 12:38 MPV 10.5 fL (7.4-10.4) H 11/19/22 12:38 Neut % (Auto) 81.9 % 11/19/22 12:38 Lymph % (Auto) 13.6 % 11/19/22 12:38 [place] % (Auto) 4.1 % 11/19/22 12:38 Eos % (Auto) 0.0 % 11/19/22 12:38 Baso % (Auto) 0.2 % 11/19/22 12:38 Neut # (Auto) 6.84 10^3/uL (1.8-7.7) 11/19/22 12:38 Lymph # (Auto) 1.1 10^3/uL (0.8-4.8) 11/19/22 12:38 [place] # (Auto) 0.3 10^3/uL (0.2-0.9) 11/19/22 12:38 Eos # (Auto) 0.0 10^3/uL (0.0-0.8) 11/19/22 12:38 Baso # (Auto) 0.0 10^3/uL (0.0-0.1) 11/19/22 12:38 Nucleated RBC % (auto) 0 % 11/19/22 12:38 Nucleated RBCs # 0.0 /100WBC 11/19/22 12:38 Sodium 142 mmol/L (136-145) 11/19/22 12:38 Potassium 3.6 mmol/L (3.5-5.1) 11/19/22 12:38 Chloride 102 mmol/L (98-107) 11/19/22 12:38 Carbon Dioxide 25 mmol/L (22-29) 11/19/22 12:38 Anion Gap 18.6 (5-19) 11/19/22 12:38 BUN 13 mg/dL (8-23) 11/19/22 12:38 Creatinine 0.3 mg/dL (0.5-0.9) L 11/19/22 12:38 GFR Calculation 222.6 mL/min (90-130) H 11/19/22 12:38 Glucose 149 mg/dL (65-115) H 11/19/22 12:38 Calculated Osmolality 297 mOsm/kg (285-295) H 11/19/22 12:38 Calcium 9.1 mg/dL (8.5-10.5) 11/19/22 12:38 Total Bilirubin 1.1 mg/dL (0.15-1.2) 11/19/22 12:38 AST 135 U/L (0-32) H 11/19/22 12:38 ALT 135 U/L (0-33) H 11/19/22 12:38 Alkaline Phosphatase 303 U/L (35-105) H 11/19/22 12:38 Troponin T Baseline 9 ng/L (0-10) 11/19/22 12:38 Troponin T 120 Minute 9.35 ng/L (0-10) 11/19/22 14:35 Delta Troponin T 0.35 ABS# (0-10) 11/19/22 14:35 NT-Pro-B Natriuret Pep 1170 pg/mL (0-125) H 11/19/22 12:38 Total Protein 6.8 g/dL (6.6-8.7) 11/19/22 12:38 Albumin 3.9 g/dL (3.5-5.2) 11/19/22 12:38 Globulin 2.9 g/dL (1.3-4.6) 11/19/22 12:38 Discharge Plan Discharge Patient Disposition: Admitted As Inpatient Clinical Impression: Acute cholecystitis, COPD (chronic obstructive pulmonary disease), Unexplained weight loss Condition: Stable Coding Level of Care Code ED Software Specialist for Aarti Yang
[2022-11-19 14:58] LABS: NT Pro B Type Natriuretic Pept 1170 pg/mL (0-125)
--- NOTE | 2022-11-19 15:02 | PC.PHAR ---
pt states she takes care of her own medications-pt states she has a blood pressure pill she takes daily-states she filled at [facility] only-called [facility] in [place] and [facility] in [place] [address] all states they havent filled a bp med for the pt-
[2022-11-19 15:31] LABS: Troponin 5 2HR 9.35 ng/L (0-10)
[2022-11-19 15:38] LABS: Troponin 5 2HR Delta 0.35 ABS# (0-10)
[2022-11-19] MEDS: morphine 4 mg/mL SDV 1 mL IVP (17:24)
--- NOTE | 2022-11-19 17:32 | P.CONIM_ITS ---
Providers/Reason For Consult Consulting Physician/Specialty*: Dr. Barragan/internal medicine Reason for Consult*: Medical comorbidities Requesting Physician: Dr. Bliss Attending Physician: Dr. Bliss Primary Care Provider: Storm Menchaca DO History of Present Illness History of Present Illness Aiyana Champion is a 67 year old female no segment past medical history and a possible undiagnosed COPD with a baseline BMI from 14 presented to the ER today with abdominal pain, nausea and vomiting which has been ongoing for last 1 month but acutely for last 3 days associated with poor oral intake. Pain is constri cting type and center of the epigastric area radiating to right upper quadrant. Patient is also complaining of losing up to 60 pounds of weight in last 8 years. Patient is a chronic smoker and smokes up to 1-1/2 packs/day. Has significant family history of cancers with prostate cancer in brother and vulvar cancer in sister. Currently complaining of abdominal pain. Denies any changes in bowel movements. Passing gas with last bowel movement today morning. Review of Systems General: Reports: 10 or more systems reviewed and unremarkable except in HPI and below Const: Denies: fever(s), chills, body aches, change in appetite, change in weight, malaise, night sweats, diaphoresis, change in sleep pattern, daytime sleepiness or snoring Eyes: Denies: change in vision, blurry vision, photophobia, eye discomfort or eye discharge ENMT: Denies: throat pain, enlarged tonsils, hoarseness, mouth pain, oral sores, dry mouth, tinnitus, nasal congestion or post nasal drip Card: Denies: chest pain, palpitations, irregular heart rhythm, edema, swelling of feet/ankles, lightheadedness, syncope, pre-syncope, dyspnea on exertion, orthopnea, leg pain with exertion or acrocyanosis Resp: Denies: dyspnea, productive cough, non-productive cough, wheezing, stridor, pain on inspiration, change in phlegm color, hemoptysis or chest congestion GI: Denies: abdominal pain, nausea, vomiting, hematemesis, coffee ground emesis, dysphagia, heartburn, diarrhea, constipation, bloating, GI cramping, change in bowel habits, pain on defecation, hematochezia or melena : Denies: flank pain, dysuria, urinary frequency, urinary urgency, urinary hesitancy, nocturia or hematuria Musc: Denies: neck pain, back pain, extremity pain, joint pain, joint swelling, joint redness, joint stiffness or limited range of motion Neuro: Denies: headache(s), numbness in extremities, weakness in extremities, sensory changes, lack of coordination, difficulty walking, frequent falls, dizziness, vertigo, confusion, Slurred speech present, difficulty communicating thoughts or seizure-like activity Psych: Denies: anxiety, depression, mood swings, panic attacks, hopelessness or irritability Endo: Denies: polyuria, polydipsia, tired all the time, cold intolerance, excessive sweating, flushing or heat intolerance Demetrius/Lymph: Denies: easy bruising or easy bleeding All/Imm: Denies: tongue swelling, facial swelling or acute wheezing Medications/Allergies Home Medications Medication Instructions Recorded Confirmed Last Taken Type fluticasone propionate 50 1 spray intranasal BID PRN Allergy 03/12/22 11/19/22 Unknown History mcg/actuation nasal Symptoms spray,suspension (Allergy Relief (fluticasone)) ondansetron 4 mg disintegrating 4 mg PO Q8H PRN nausea and 10/21/22 11/19/22 11/19/22 Rx tablet vomiting #14 tabs Unknown Blood Pressure Pill 1 tab PO DAILY 11/19/22 11/19/22 Unknown History nitroglycerin 0.4 mg sublingual 0.4 mg sublingual Q5M PRN chest 11/19/22 11/19/22 Unknown Rx tablet pain #25 tabs oxycodone 40 mg tablet,crush 40 mg PO BID@06,18 11/19/22 11/19/22 11/17/22 History resistant,extended release 12 hr (OxyContin) potassium chloride 10 mEq 10 meq PO BID #14 caps 11/19/22 11/19/22 Unknown Rx capsule,extended release Allergies Allergy/AdvReac Type Severity Reaction Status Date / Time No Known Drug Allergies Allergy none Verified 03/12/22 13:51 PFSH Acute PFSH: Medical History (Updated 11/19/22 @ 17:38 by Kelechi Coker DO) Acquired scoliosis 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 Arthritis 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 Spondylosis Surgical History (Updated 11/19/22 @ 17:38 by Mat Barragan MD) H/O total hysterectomy History of adenoidectomy Hx of tonsillectomy Family History Mother CAD (coronary artery disease) Diabetes Hypertension Stroke Father CAD (coronary artery disease) Cancer Diabetes Grandfather Stroke Denies family history of Clotting disorder Dementia Hyperlipidemia Psychiatric illness Chronic kidney disease (CKD) Suicide Anesthesia complication Bleeding disorder Family history of premature coronary artery disease Lung disease Social History (Updated 11/19/22 @ 17:55 by Mat Barragan MD) Smoking and tobacco status: current every day smoker cigarettes Packs smoked per day: 1.5 Years cigarettes smoked: 50 Alcohol intake: never Substance/Drug Use: never Lives independently: Yes Housing: House Female Reproductive History: Spontaneous abortions: No Vitals/I&O/Wt Last Vital Signs Temp 98.1 F 11/19/22 11:40 Pulse 97 11/19/22 16:39 Resp 17 11/19/22 17:24 BP 178/73 11/19/22 16:39 Pulse Ox 94 11/19/22 16:39 O2 Del Method Room Air 11/19/22 16:39 Weight last 48 hrs Weight 34.927 kg Physical Exam Narrative: General: Mild distress because of abdominal pain, AOx3, cachectic, chronically sick appearing HEENT: PERRLA, pupils bilaterally equal and reactive Chest: Bilateral bronchial breath sounds with diffuse rhonchi all over lung woods CVS: S1-S2 regular, soft pansystolic murmur at fourth intercostal left parasternal region, tachycardia, no gallops, no rubs Abdomen: Soft, nontender, no organomegaly, bowel sounds present Neuro: No focal deficits, no facial deformity, AO x3, power 5/5 in all limbs Data 11/19/22 12:38 11/19/22 12:38 A&P Assessment and plan (1) Cholecystitis: As per primary team. Most likely plan for cholecystectomy. Patient is doing well on room air. Is hemodynamically stable. No known significant past medical history. Patient is low to moderate risk given possible undiagnosed COPD for low risk procedure. Given Zosyn in the ER. Does not have any white count for now. For now we will hold off on antibiotics from medical point of view. D5 NS at 50 cc/h. (2) Elevated alkaline phosphatase level: (3) Transaminitis: (4) COPD (chronic obstructive pulmonary disease) with emphysema: Undiagnosed. Seen on CTA. DuoNebs every 6 hour, budesonide twice daily. Oxygen supplementation keeping saturation over 88%. Most likely patient should be discharged on longstanding inhalers. (5) Protein-energy malnutrition: Could be secondary to undiagnosed COPD. Patient is a significant family history of cancers. Last colonoscopy within last 10 years negative. Check TSH, A1c, lipid panel, vitamin B12, folate level, iron panel. Plan Tachycardia: Could be secondary to pain. EKG is suggestive of right atrial enlargement with mild right-sided strain. CTA done yesterday negative for PE. Check echocardiogram. Start on Cardizem 30 mg twice daily. Patient is agreeable. No A-fib on EKG. Telemetry. CODE STATUS: Discussed in detail with the patient. Full code. Diet as per primary team. Anticoagulation as per primary team. Protonix for PUD prophylaxis. Consult Attestations Medical Necessity Statement: Needs admission most likely for more than 2 midnights for above defined care. Diagnoses Cholecystitis K81.9 Elevated alkaline phosphatase level R74.8 Transaminitis R74.01 COPD (chronic obstructive pulmonary disease) with emphysema J43.9 Protein-energy malnutrition E46
--- NOTE | 2022-11-19 17:48 | ECG_ITS ---
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 Measurements Intervals [place] Rate: 108 P: 82 CA: 161 QRS: 60 QRSD: 70 T: 78 QT: 345 QTc: 463 Interpretive Statements SINUS TACHYCARDIA RIGHT ATRIAL ENLARGEMENT [0.3mV P-WAVE] LEFT ATRIAL ENLARGEMENT [-0.15mV P-WAVE IN V1/V2] SEPTAL MYOCARDIAL INFARCTION , OF INDETERMINATE AGE [40+ ms Q WAVE IN V1/V2] Compared to ECG 11/19/2022 14:11:12 Atrial abnormality now present Left ventricular hypertrophy no longer present Myocardial infarct finding still present Electronically Signed On 11-20-2022 18:01:23 CDT by Stan Daniel M.D. [id number]
[2022-11-19 18:49] LABS: Troponin 5 6HR 12.11 ng/L (0-10); Troponin 5 6HR Delta 3.11 ng/L (0-12)
[2022-11-19 18:56] LABS: Thyroid Stimulating Hormone 0.01 uIU/mL (0.27-4.20)
[2022-11-19 19:08] LABS: Procalcitonin 0.17 ng/mL (0-0.5); Vitamin B12 853 pg/mL (232-1245)
[2022-11-19 19:19] LABS: Iron 130 ug/dL (37-145); Percent Saturation 51.7 % (20-50); Total Iron Binding Capacity 251 mcg/dl; Unsaturated Iron Binding 121 ug/dL (112-347)
[2022-11-19] MEDS: ipratropium-albuterol 3 mL Neb INHALATION (19:19)
[2022-11-19] MEDS: budesonide 0.5 mg/2 mL Neb INHALATION (19:20)
[2022-11-19] MEDS: dilTIAZem 30 mg Tablet PO (20:16)
[2022-11-19] MEDS: D5-NS 0.45% + KCL 20 mEq 20 MEQ/1,000 ML BAG 50 MEQ IV (20:17)
[2022-11-19] MEDS: morphine 4 mg/mL SDV 1 mL 2 MG IVP (20:48)
[2022-11-19] MEDS: ondansetron 2 mg/ML SDV 2 mL 4 MG IVP (20:48)
[2022-11-19] MEDS: piperacillin-tazobactam 3.375 GM in sodium chloride 0.9% (plus) 50 ML IV (20:52)
[2022-11-20] VITALS (30 sets, daily range): BP systolic 122–188; BP diastolic 61–98; PULSE 83–108; RESP 15–22; TEMP 36.5–37.2; O2SAT 2–100
[2022-11-20] MEDS: morphine 4 mg/mL SDV 1 mL 2 MG IVP ×2 (04:16→09:11)
[2022-11-20] MEDS: ondansetron 2 mg/ML SDV 2 mL 4 MG IVP ×3 (04:17→20:20)
[2022-11-20 04:45] LABS: Basophils % 0.2 %; Hematocrit 38.4 % (37.0-47.0); Hemoglobin 12.2 g/dL (11.5-15.3); Lymphocytes # 1.8 10^3/uL (0.8-4.8); Lymphocytes % 20.9 %; Mean Corpuscular HGB Conc 31.8 g/dL (30.0-36.0); Mean Corpuscular Hemoglobin 27.2 pg (28.0-34.0); Mean Corpuscular Volume 85.7 fl (81-99); Mean Platelet Volume 10.8 fL (7.4-10.4); Monocytes # 0.7 10^3/uL (0.2-0.9); Monocytes % 8.4 %; Neutrophils # 6.19 10^3/uL (1.8-7.7); Neutrophils % 70.3 %; Nucleated Red Blood Cells % 0 %; Platelet Count 186 10^3/cmm (130-400); Red Blood Count 4.48 10^6/uL (4.1-5.3); Red Cell Distribution Width 14.8 % (12.1-15.1); White Blood Count 8.8 10^3/uL (4.0-10.0)
[2022-11-20 05:08] LABS: Alanine Aminotransferase 89 U/L (0-33); Albumin Level 3.6 g/dL (3.5-5.2); Alkaline Phosphatase 259 U/L (35-105); Anion Gap 15.4 (5-19); Aspartate Amino Transferase 62 U/L (0-32); Blood Urea Nitrogen 14 mg/dL (8-23); Calcium 8.7 mg/dL (8.5-10.5); Carbon Dioxide 24 mmol/L (22-29); Chloride 103 mmol/L (98-107); Globulin 2.8 g/dL (1.3-4.6); Glomerular Filtration Rate 222.6 mL/min (90-130); Glucose 136 mg/dL (65-115); Osmolality Calculated 291 mOsm/kg (285-295); Potassium 3.4 mmol/L (3.5-5.1); Sodium 139 mmol/L (136-145); Total Bilirubin 0.9 mg/dL (0.15-1.2); Total Protein 6.4 g/dL (6.6-8.7)
[2022-11-20 05:18] LABS: Estmated Average Glucose 114; Hemoglobin A1C 5.6 % (4.0-6.0)
[2022-11-20 05:24] LABS: Folate Level 10.7 ng/mL (4.8-37.3)
[2022-11-20 05:26] LABS: Chol HDL Ratio 2.63 mg/dL (0.0-4.40); Cholesterol 150 mg/dL (0-200); HDL Cholesterol 57 mg/dL (60-100); LDL Cholesterol Calculated 77 mg/dL (50-129); Triglycerides 81 mg/dL (0-150); VLDL Cholestrol Calculation 16 mg/dL (0-30)
[2022-11-20] MEDS: budesonide 0.5 mg/2 mL Neb INHALATION ×2 (07:39→23:17)
[2022-11-20] MEDS: ipratropium-albuterol 3 mL Neb INHALATION ×2 (07:39→23:18)
[2022-11-20] MEDS: nicotine 14 mg Patch 1 PATCH TRANSDERMA (08:32)
[2022-11-20] MEDS: dilTIAZem 30 mg Tablet PO ×2 (08:32→22:22)
--- NOTE | 2022-11-20 11:05 | ANES.PREANE2 ---
Pre-Anesthetic Assessment Height/Weight: Height 1.55 m Weight 34.927 kg Temp Pulse Resp BP Pulse Ox O2 Del Method 97.9 F 83 16 138/65 94 Room Air 11/20/22 10:45 11/20/22 10:45 11/20/22 10:45 11/20/22 10:45 11/20/22 10:45 11/20/22 10:45 Operation Date: 11/20/22 11:30 Proposed Procedures p Laparoscopic Cholecystectomy(Not Applicable) - Byron Bliss DO Familial anesthetic complications: None Was Beta Carmen taken within 24 hours: N/A Was Clonidine taken within 24 hours: N/A Last intake: Intake Last Liquid Date 11/20/22 Last Liquid Time 06:00 Last Solid Date 11/19/22 Last Solid Time 06:00 Social Tobacco and No alcohol Airway Mallampati: Class II Dentition: full Pulmonary Chronic Obstructive Pulmonary Disease Anesthetic Plan ASA status: 3 Risk of > 500 ml blood loss (7ml/kg in children): No Medications/Allergies Home Medications Medication Instructions Recorded Confirmed Last Taken Type fluticasone propionate 50 1 spray intranasal BID PRN Allergy 03/12/22 11/19/22 Unknown History mcg/actuation nasal Symptoms spray,suspension (Allergy Relief (fluticasone)) ondansetron 4 mg disintegrating 4 mg PO Q8H PRN nausea and 10/21/22 11/19/22 11/19/22 Rx tablet vomiting #14 tabs Unknown Blood Pressure Pill 1 tab PO DAILY 11/19/22 11/19/22 Unknown History nitroglycerin 0.4 mg sublingual 0.4 mg sublingual Q5M PRN chest 11/19/22 11/19/22 Unknown Rx tablet pain #25 tabs oxycodone 40 mg tablet,crush 40 mg PO BID@06,18 11/19/22 11/19/22 11/17/22 History resistant,extended release 12 hr (OxyContin) potassium chloride 10 mEq 10 meq PO BID #14 caps 11/19/22 11/19/22 Unknown Rx capsule,extended release Allergies Allergy/AdvReac Type Severity Reaction Status Date / Time erythromycin base Allergy ALGY-Hives Verified 11/19/22 20:46 [From Erythrocin] Current Medications Generic Name Dose Route Start Last Admin Trade Name Freq PRN Reason Stop Dose Admin Albuterol/Ipratropium 3 ml 11/19/22 20:00 11/20/22 07:39 Ipratropium-Albuterol 3 Ml Neb INHALATION 3 ml Q6H.RESP SUZANNE Administration Budesonide 0.5 mg 11/19/22 20:00 11/20/22 07:39 Budesonide 0.5 Mg/2 Ml Neb INHALATION 0.5 mg BID.RESPIRATORY SUZANNE Administration Diltiazem HCl 30 mg 11/19/22 18:00 11/20/22 08:32 Diltiazem 30 Mg Tablet PO 30 mg BID SUZANNE Administration Potassium Chloride/Dextrose/Sod Cl 20 meq in 1,000 mls @ 50 mls/hr 11/19/22 19:28 11/19/22 20:17 D5-Ns 0.45% + Kcl 20 Meq IV 50 mls/hr .Q20H SUZANNE Administration Morphine Sulfate 2 mg 11/19/22 19:28 11/20/22 09:11 Morphine 4 Mg/Ml Sdv 1 Ml IVP 2 mg Q4H PRN Administration SEVERE PAIN Nicotine 1 patch 11/20/22 09:00 11/20/22 08:32 Nicotine 14 Mg Patch TRANSDERMA 1 patch DAILY SUZANNE Administration Ondansetron HCl 4 mg 11/19/22 19:28 11/20/22 10:23 Ondansetron 2 Mg/Ml Sdv 2 Ml IVP 4 mg Q6H PRN Administration NAUSEA AND VOMITING PFSH Anesthesia Medical History (Updated 11/19/22 @ 17:38 by Kelechi Coker DO) Acquired scoliosis 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 Arthritis 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 Spondylosis Surgical History (Updated 11/19/22 @ 17:38 by Mat Barragan MD) H/O total hysterectomy History of adenoidectomy Hx of tonsillectomy Family History Mother CAD (coronary artery disease) Diabetes Hypertension Stroke Father CAD (coronary artery disease) Cancer Diabetes Grandfather Stroke Denies family history of Clotting disorder Dementia Hyperlipidemia Psychiatric illness Chronic kidney disease (CKD) Suicide Anesthesia complication Bleeding disorder Family history of premature coronary artery disease Lung disease Social History (Updated 11/19/22 @ 17:55 by Mat Barragan MD) Smoking and tobacco status: current every day smoker cigarettes Packs smoked per day: 1.5 Years cigarettes smoked: 50 Alcohol intake: never Substance/Drug Use: never Lives independently: Yes Housing: House Female Reproductive History Spontaneous abortions: No Data Anesthesia 11/20/22 03:59 11/20/22 03:59 Short CBC 11/19/22 11/20/22 Range/Units 12:38 03:59 WBC 8.4 8.8 (4.0-10.0) 10^3/uL Hgb 13.1 12.2 (11.5-15.3) g/dL Hct 40.5 38.4 (37.0-47.0) % MCV 84.6 85.7 (81-99) fl Plt Count 207 186 (130-400) 10^3/cmm Neut % (Auto) 81.9 70.3 % Neut # (Auto) 6.84 6.19 (1.8-7.7) 10^3/uL BMP 11/19/22 11/20/22 12:38 03:59 Sodium 142 139 Potassium 3.6 3.4 L Chloride 102 103 Carbon Dioxide 25 24 BUN 13 14 Creatinine 0.3 L 0.3 L Glucose 149 H 136 H Calcium 9.1 8.7 Cardiac Enzymes 11/19/22 11/19/22 11/19/22 Range/Units 12:38 12:38 14:35 Troponin T Baseline 9 (0-10) ng/L Troponin T 120 Minute 9.35 (0-10) ng/L Delta Troponin T 0.35 (0-10) ABS# Troponin T Hi Sens 6Hr (0-10) ng/L Troponin T Hi Sens 6Hr Delta (0-12) ng/L NT-Pro-B Natriuret Pep 1170 H (0-125) pg/mL 11/19/22 Range/Units 18:09 Troponin T Baseline (0-10) ng/L Troponin T 120 Minute (0-10) ng/L Delta Troponin T (0-10) ABS# Troponin T Hi Sens 6Hr 12.11 H (0-10) ng/L Troponin T Hi Sens 6Hr Delta 3.11 (0-12) ng/L NT-Pro-B Natriuret Pep (0-125) pg/mL Liver Function 11/19/22 11/20/22 Range/Units 12:38 03:59 Total Bilirubin 1.1 0.9 (0.15-1.2) mg/dL AST 135 H 62 H (0-32) U/L ALT 135 H 89 H (0-33) U/L Alkaline Phosphatase 303 H 259 H (35-105) U/L Albumin 3.9 3.6 (3.5-5.2) g/dL Microbiology 11/19/22 18:09 Blood Culture - Preliminary Blood SPECIMEN COLLECTED 11/19/22 18:00 Blood Culture - Preliminary Blood SPECIMEN COLLECTED Cardiac Studies: No Data to Display
[2022-11-20] MEDS: scopolamine 1.5 Patch 1 PATCH TRANSDERMA (11:15)
[2022-11-20] MEDS: sodium chloride 0.9% 1,000 ML 30 ML IV (11:15)
--- NOTE | 2022-11-20 12:59 | PM.HP ---
Providers/Chief Complaint Admitting Physician: Byron Bliss DO Primary Care Provider: Storm Menchaca DO Chief Complaint: N/V High BP, High HR History of Present Illness Aiyana Champion is a 67 year old female who presented to the emergency room with a 1 month history of epigastric abdominal pain. She reports that for the last 3 days however the pain had localized to the right upper quadrant. She has some nausea but denies any emesis. She reports diarrhea but denies any hematochezia or melena. Ultrasound shows a hydropic gallbladder and lab work shows leukocytosis. Eating makes the pain worse. Nothing makes pain better. The pain radiates to her back. Review of Systems General: Reports: 10 or more systems reviewed and unremarkable except in HPI and below Medications/Allergies Home Medications Medication Instructions Recorded Confirmed Last Taken Type fluticasone propionate 50 1 spray intranasal BID PRN Allergy 03/12/22 11/19/22 Unknown History mcg/actuation nasal Symptoms spray,suspension (Allergy Relief (fluticasone)) ondansetron 4 mg disintegrating 4 mg PO Q8H PRN nausea and 10/21/22 11/19/22 11/19/22 Rx tablet vomiting #14 tabs Unknown Blood Pressure Pill 1 tab PO DAILY 11/19/22 11/19/22 Unknown History nitroglycerin 0.4 mg sublingual 0.4 mg sublingual Q5M PRN chest 11/19/22 11/19/22 Unknown Rx tablet pain #25 tabs oxycodone 40 mg tablet,crush 40 mg PO BID@06,18 11/19/22 11/19/22 11/17/22 History resistant,extended release 12 hr (OxyContin) potassium chloride 10 mEq 10 meq PO BID #14 caps 11/19/22 11/19/22 Unknown Rx capsule,extended release Allergies Allergy/AdvReac Type Severity Reaction Status Date / Time erythromycin base Allergy ALGY-Hives Verified 11/19/22 20:46 [From Erythrocin] PFSH Acute PFSH: Medical History Acquired scoliosis 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 Arthritis 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 Spondylosis Surgical History H/O total hysterectomy History of adenoidectomy Hx of tonsillectomy Family History Mother CAD (coronary artery disease) Diabetes Hypertension Stroke Father CAD (coronary artery disease) Cancer Diabetes Grandfather Stroke Denies family history of Clotting disorder Dementia Hyperlipidemia Psychiatric illness Chronic kidney disease (CKD) Suicide Anesthesia complication Bleeding disorder Family history of premature coronary artery disease Lung disease Social History Smoking and tobacco status: current every day smoker cigarettes Packs smoked per day: 1.5 Years cigarettes smoked: 50 Alcohol intake: never Substance/Drug Use: never Lives independently: Yes Housing: House Female Reproductive History: Spontaneous abortions: No Vitals/I&O/Wt Last Vital Signs Temp 97.9 F 11/20/22 10:45 Pulse 83 11/20/22 10:45 Resp 16 11/20/22 10:45 BP 138/65 11/20/22 10:45 Pulse Ox 94 11/20/22 10:45 O2 Del Method Room Air 11/20/22 10:45 11/19/22 11/20/22 11/20/22 22:59 06:59 14:59 Intake Total 410 / 410 Balance 410 / 410 Weight last 48 hrs Weight 77 lb Physical Exam Narrative: General : Patient is well developed , no acute distress, very skinny, oriented x3 Head : Normal cephalic, a-traumatic. Ears : Pinnae and external canal are normal. Hearing is normal. Eyes : PERRLA, Sclera and injection are normal. No conjunctival discharge. Nose : Mucous membranes are without erythema. Throat : buccal mucosa is normal, gums are without significant recession or hypertrophy. Lungs : Equal chest rise bilaterally, no use of accessory muscles, trachea is midline. Cor : Rate and rhythm are normal. Abdomen : Soft, ND, tender right upper quadrant, negative Plunkett's, no g/r/m Extremities : No edema, no cyanosis or clubbing, dorsalis pedis pulses are present bilaterally, non-tender to palpation of calves. Upper extremities are normal bilaterally. Back : non-tender to palpation, no CVA tenderness. Neuro : CN II - XII intact, Upper and lower extremities have equal and full strength Data 11/20/22 03:59 11/20/22 03:59 Micro: Microbiology 11/19/22 18:09 Blood Culture - Preliminary Blood SPECIMEN COLLECTED 11/19/22 18:00 Blood Culture - Preliminary Blood SPECIMEN COLLECTED A&P Assessment and plan (1) Acute cholecystitis: (2) Elevated alkaline phosphatase level: (3) Transaminitis: Plan Laparoscopic cholecystectomy The risks and benefits of the procedure, including but not limited to, bleeding, infection, scar, numbness, pain, damage to surrounding structures, damage to common bile duct requiring additional surgery, conversion to an open procedure, were explained to the patient. He is understanding of the risks and wishes to proceed. Attestations Medical Necessity Statement*: Patient requires at least 1 night hospital stay for IV antibiotics after laparoscopic cholecystectomy Coding Level of Care Code 94012 Diagnoses Acute cholecystitis K81.0 Elevated alkaline phosphatase level R74.8 Transaminitis R74.01
[2022-11-20] MEDS: piperacillin-tazobactam 3.375 GM in sodium chloride 0.9% (plus) 50 ML IV ×2 (13:04→18:22)
[2022-11-20] MEDS: lidocaine-epi 2% 20 mL INJ 10 ML INJECTION (13:26)
--- NOTE | 2022-11-20 14:11 | P.PN_ITS ---
Subjective Subjective: No acute events overnight. Has remained hemodynamically stable and afebrile. Continues to remain on room air. Plan for cholecystectomy today. Vitals/I&O/Wt Last Vital Signs Temp 97.9 F 11/20/22 10:45 Pulse 83 11/20/22 10:45 Resp 16 11/20/22 10:45 BP 138/65 11/20/22 10:45 Pulse Ox 94 11/20/22 10:45 O2 Del Method Room Air 11/20/22 10:45 11/19/22 11/20/22 11/20/22 22:59 06:59 14:59 Intake Total 410 / 410 50 / 50 Balance 410 / 410 50 / 50 Weight last 48 hrs Weight 34.927 kg Physical Exam Narrative: General: Mild distress because of abdominal pain, AOx3, cachectic, chronically sick appearing HEENT: PERRLA, pupils bilaterally equal and reactive Chest: Bilateral bronchial breath sounds with diffuse rhonchi all over lung woods CVS: S1-S2 regular, soft pansystolic murmur at fourth intercostal left parasternal region, tachycardia, no gallops, no rubs Abdomen: Soft, nontender, no organomegaly, bowel sounds present Neuro: No focal deficits, no facial deformity, AO x3, power 5/5 in all limbs Data 11/20/22 03:59 11/20/22 03:59 Micro: Microbiology 11/19/22 18:09 Blood Culture - Preliminary Blood SPECIMEN COLLECTED 11/19/22 18:00 Blood Culture - Preliminary Blood SPECIMEN COLLECTED A&P Assessment and plan (1) Cholecystitis: As per primary team. Plan for cholecystectomy today. Patient is doing well on room air. Is hemodynamically stable. No known significant past medical history. Patient is low to moderate risk given p ossible undiagnosed COPD for low risk procedure. Given Zosyn in the ER. Does not have any white count for now. For now we will hold off on antibiotics from medical point of view. Continue with D5 NS at 50 cc/h. (2) Elevated alkaline phosphatase level: (3) Transaminitis: (4) COPD (chronic obstructive pulmonary disease) with emphysema: Undiagnosed. Seen on CTA. Remains on room air. DuoNebs every 6 hour, budesonide twice daily. Oxygen supplementation keeping saturation over 88%. Most likely patient should be discharged on longstanding inhalers. (5) Protein-energy malnutrition: Could be secondary to undiagnosed COPD. Patient is a significant family history of cancers. Last colonoscopy within last 10 years negative. TSH found to be 0.1. Check free T3 and free T4. Cannot rule out underlying hyperthyroidism. A1c, lipid panel, vitamin B12 and folate levels appreciated. Plan Tachycardia: Could be secondary to pain. EKG is suggestive of right atrial enlargement with mild right-sided strain. CTA done yesterday negative for PE. Heart rate better controlled. Echocardiogram awaited. Continue with Cardizem 30 mg twice daily. Patient is agreeable. No A-fib on EKG. Telemetry. CODE STATUS: Discussed in detail with the patient. Full code. Diet as per primary team. Anticoagulation as per primary team. Protonix for PUD prophylaxis. Attestations Medical Necessity Statement*: As per primary team. Diagnoses Cholecystitis K81.9 Elevated alkaline phosphatase level R74.8 Transaminitis R74.01 COPD (chronic obstructive pulmonary disease) with emphysema J43.9 Protein-energy malnutrition E46
[2022-11-20 15:27] LABS: Free T4 Free Thyroxine 5.64 ng/dL (0.82-1.77); T3 Free 9.6 PG/ML (2.0-4.4)
--- NOTE | 2022-11-20 15:59 | P.OP_ITS ---
Operative Report Date of procedure: November 20, 2022 Pre-op diagnosis: Acute cholecystitis Post-op diagnosis: other (Cholecystitis) Procedure done: Laparoscopic cholecystectomy Specimens removed/disposition: Gallbladder Surgeon: Dr. Byron Bliss DO Anesthesia: General Estimated blood loss (mL): 5 Complications: None apparent Findings: Extremely large gallbladder Brief History: This very pleasant 67-year-old female with a BMI of 14.5 who repeatedly came to the hospital for right upper quadrant abdominal pain. CT done last month could not identify the gallbladder easily. Ultrasound done on this hospital visit showed possible hydropic gallbladder with layering stones and sludge. Laparoscopic cholecystectomy was indicated. The risk and benefits were explained and documented. Procedure: Patient was wheeled into the operative room and placed on the OR table in a supine position. Abdomen was inspected prepped and draped in usual sterile fashion. Time-out was performed and all present were in agreement. A 15 blade scalp was used to make a stab incision in the left upper quadrant and intra- abdominal insufflation was achieved using a Veress needle. After localizing the tissue incisions were made and a 5 millimeter trocar was placed into the umbilic us as well as 2 in the right upper quadrant. A 12 millimeter trocar was placed in the epigastrium. The gallbladder was extremely difficult to identify. In the process of trying to identify the gallbladder 2 additional 5 mm trocars were placed, one in the left upper quadrant and 1 in the left lower quadrant. I scrubbed out and went to talk to the radiologist that read both the CT and the ultrasound in order to help identify the gallbladder. Together we had a very difficult time doing this. Ultimately we determined that what appeared to be the transverse colon was in fact the gallbladder going all the way down into the pelvis. I scrubbed back in and was able to confirm that the gallbladder did end in the pelvis. I was unable to work my way from the fundus of the gallbladder down to the triangle of FRANCES. Gallbladder was grasped and elevated. The triangle of Calot was carefully dissected using blunt dissection and electrocautery until the triangle of Calot clearly identified. The cystic duct was clipped proximally and double clipped distally. The duct was then ligated proximally. The cystic artery was doubly clipped and ligated. The gallbladder had 2 more arteries going to it, for a total of 3 arteries that were clipped and cut. The gallbladder was extremely large and folded upon itself. The case was extremely difficult and took an extended period of time. The gallbladder was then removed from the liver bed using electrocautery. The gallbladder was removed from the abdomen using an Endo-Catch bag through the epigastric incision. The liver bed was inspected and no bleeding was seen. The abdomen was irrigated and suctioned. The 12 mm trocar site was closed at the fascia with 0 Vicryl in a Akash-Florentino in a [id number] fashion. All ports removed. Skin was washed and dried. Incisions were closed with 3-0 and 4-O Vicryl in a subcuticular interrupted fashion. Skin glue was applied. Patient tolerated the procedure well.
[2022-11-20 16:32] LABS: Cortisol Random 24.45 ug/dL (2.47-19.5)
[2022-11-20] MEDS: HYDROmorphone 1 mg/mL INJ 1 mL 0.5 MG IVP (16:50)
--- NOTE | 2022-11-20 17:42 | USCV_ITS ---
Aiyana Champion Age: 67 Gender: F : 1955 Exam Date: 11/20/2022 09:10 Ordering Phys: Mat Barragan MD Technologist: [place] [facility] [place]: chf BP: 130 / 60 HR: 111 Rhythm: Sinus Technical Quality: MEASUREMENTS (Male / Female) Normal Values 2D ECHO LV Diastolic Diameter PLAX 4.0 cm 4.2 - 5.9 / 3.9 - 5.3 cm LV Systolic Diameter PLAX 3.1 cm IVS Diastolic Thickness 1.0 cm 0.6 - 1.0 / 0.6 - 0.9 cm IVS Systolic Thickness 1.3 cm LVPW Diastolic Thickness 0.8 cm 0.6 - 1.0 / 0.6 - 0.9 cm LVPW Systolic Thickness 0.9 cm LVOT Diameter 2.0 cm LV Ejection Fraction 2D Teich 46.5 % LV Ejection Fraction MOD 2C 64.0 % LV Ejection Fraction 2C AL 63.8 % LA Diameter 2.7 cm Aorta at Sinotubular Diameter 2.2 cm IVC Diameter 2.1 cm M-MODE Aortic Annulus Diameter 3.2 cm LA Ao Ratio MM 0.9 MV E Point Septal Separation 0.5 cm DOPPLER AV Peak Velocity 161.0 cm/s LVOT Peak Velocity 104.0 cm/s AV Area Cont Eq vti 2.0 cm squared AV Area Cont Eq pk 2.1 cm squared MV Peak Velocity 127.0 cm/s MV Area PHT 5.0 cm squared Mitral E to A Ratio 4.6 MV E' Velocity 228.6 cm/s Mitral E to MV E' Ratio 51.5 Mitral E to LV E' Lateral Ratio 53.7 Mitral E to LV E' Septal Ratio 49.9 TR Peak Velocity 241.0 cm/s TR Peak Gradient 23.2 mmHg TR Mean Velocity 185.7 cm/s TR Mean Gradient 15.9 mmHg TR Velocity Time Integral 49.6 cm TV Peak E Velocity 88.0 cm/s Right Atrial Pressure 3.0 mmHg Pulmonary Artery Systolic Pressu 26.2 mmHg PV Peak Velocity 88.0 cm/s FINDINGS Left Ventricle Normal left ventricular size and systolic function, EF 64 %. No regional wall motion abnormalities. Right Ventricle The right ventricle is normal in size and function. Right Atrium The right atrium is normal in size. Left Atrium The left atrium is normal in size. Mitral Valve Thickened mitral valve. Moderate mitral annular calcification. Mild-moderate mitral valve regurgitation. Aortic Valve Thickened aortic valve. Trace to mild aortic valve regurgitation. Tricuspid Valve Mild tricuspid valve regurgitation. Pulmonic Valve Pulmonic valve not well visualized. Pericardium Normal pericardium without effusion. Aorta Normal ascending aorta dimension. IVC Normal inferior vena cava. CONCLUSIONS Normal left ventricular size and systolic function, EF 64 %. No regional wall motion abnormalities. Thickened mitral valve. Moderate mitral annular calcification. Mild-moderate mitral valve regurgitation. Thickened aortic valve. Trace to mild aortic valve regurgitation. Mild tricuspid valve regurgitation. Estimated pulmonary artery peak systolic pressure 26 mmHg There is no pericardial effusion. There are no intracardiac masses. No similar previous studies are available for comparison Dr Adalberto Herrera MD FACC (Electronically Signed) Final Date: 20 Nov 2022 17:39 S
[2022-11-20] MEDS: HYDROmorphone 1 mg/mL INJ 1 mL IVP (20:10)
--- NOTE | 2022-11-20 21:49 | ANE.PACU2 ---
Inpatient post-anesthesia follow up: Airway intact: Yes Vital signs: Temperature 97.7 F Pulse Rate 99 Respiratory Rate 17 Blood Pressure 183/77 Pulse Oximetry 96 Oxygen Delivery Me thod Nasal Cannula Oxygen Flow Rate 2 Fraction of Inspir ed Oxygen Hydration adequate: Yes Nausea and vomiting: No Pain level: 1 Mental status: Baseline
[2022-11-20] MEDS: oxyCODONE-APAP 10-325 mg Tablet 1 TAB PO (23:35)
[2022-11-21] VITALS (17 sets, daily range): BP systolic 102–183; BP diastolic 45–68; PULSE 82–108; RESP 15–20; TEMP 36.4–37.3; O2SAT 2–100
[2022-11-21] MEDS: piperacillin-tazobactam 3.375 GM in sodium chloride 0.9% (plus) 50 ML IV ×3 (02:07→18:51)
[2022-11-21] MEDS: ipratropium-albuterol 3 mL Neb INHALATION ×3 (02:55→14:02)
[2022-11-21 05:18] LABS: Basophils % 0.1 %; Hemoglobin 13.1 g/dL (11.5-15.3); Lymphocytes # 1.4 10^3/uL (0.8-4.8); Lymphocytes % 9.9 %; Mean Corpuscular Hemoglobin 27.9 pg (28.0-34.0); Mean Corpuscular Volume 87.4 fl (81-99); Mean Platelet Volume 10.2 fL (7.4-10.4); Monocytes # 1.2 10^3/uL (0.2-0.9); Monocytes % 8.9 %; Neutrophils # 11.05 10^3/uL (1.8-7.7); Neutrophils % 80.7 %; Nucleated Red Blood Cells % 0 %; Platelet Count 183 10^3/cmm (130-400); Red Blood Count 4.69 10^6/uL (4.1-5.3); Red Cell Distribution Width 14.7 % (12.1-15.1); White Blood Count 13.7 10^3/uL (4.0-10.0)
[2022-11-21] MEDS: oxyCODONE-APAP 10-325 mg Tablet 1 TAB PO ×2 (05:20→12:33)
[2022-11-21] MEDS: levothyroxine 50 mcg Tablet PO (05:20)
[2022-11-21 05:40] LABS: Alanine Aminotransferase 78 U/L (0-33); Albumin Level 3.4 g/dL (3.5-5.2); Alkaline Phosphatase 209 U/L (35-105); Anion Gap 13.4 (5-19); Aspartate Amino Transferase 63 U/L (0-32); Blood Urea Nitrogen 19 mg/dL (8-23); Calcium 8.9 mg/dL (8.5-10.5); Carbon Dioxide 25 mmol/L (22-29); Chloride 103 mmol/L (98-107); Globulin 2.6 g/dL (1.3-4.6); Glomerular Filtration Rate 123.4 mL/min (90-130); Glucose 211 mg/dL (65-115); Osmolality Calculated 295 mOsm/kg (285-295); Potassium 3.4 mmol/L (3.5-5.1); Sodium 138 mmol/L (136-145); Total Bilirubin 0.8 mg/dL (0.15-1.2)
[2022-11-21] MEDS: nicotine 14 mg Patch 1 PATCH TRANSDERMA (08:03)
[2022-11-21] MEDS: dilTIAZem 30 mg Tablet PO (08:03)
[2022-11-21] MEDS: budesonide 0.5 mg/2 mL Neb INHALATION (09:09)
--- NOTE | 2022-11-21 13:09 | PM.PN ---
Subjective Subjective: No acute events overnight. Seen with multiple family members at bedside. Underwent cholecystectomy yesterday. Started on regular diet. Blood pressures continue to remain on the higher side but better than on admission. Vitals/I&O/Wt Last Vital Signs Temp 97.5 F L 11/21/22 13:00 Pulse 89 11/21/22 13:00 Resp 18 11/21/22 12:33 BP 183/63 11/21/22 13:00 Pulse Ox 99 11/21/22 13:00 O2 Del Method Room Air 11/21/22 09:10 O2 Flow Rate 2 11/21/22 03:51 11/20/22 11/21/22 11/21/22 22:59 06:59 14:59 Intake Total 2710 / 2760 1130 / 3890 100 / 100 Output Total 10 Balance 2700 / 2750 1130 / 3880 100 / 100 Physical Exam Narrative: General: Mild distress because of abdominal pain, AOx3, cachectic, chronically sick appearing HEENT: PERRLA, pupils bilaterally equal and reactive Chest: Bilateral bronchial breath sounds with diffuse rhonchi all over lung woods CVS: S1-S2 regular, soft pansystolic murmur at fourth intercostal left parasternal region, tachycardia, no gallops, no rubs Abdomen: Soft, nontender, no organomegaly, bowel sounds present Neuro: No focal deficits, no facial deformity, AO x3, power 5/5 in all limbs Urinary Catheter Management: Straight: Cath Placed During This Visit: no Data 11/21/22 05:00 11/21/22 05:00 Micro: Microbiology 11/19/22 18:09 Blood Culture - Preliminary Blood NEGATIVE TO DATE 11/19/22 18:00 Blood Culture - Preliminary Blood NEGATIVE TO DATE A&P Assessment and plan (1) Cholecystitis: Postcholecystectomy day 1. Diet, physical therapy, antibiotics, anticoagulation, pain medication as per primary team. Can stop IV fluids. Patient is already on regular diet. (2) COPD (chronic obstructive pulmonary disease) with emphysema: Undiagnosed. Seen on CTA. Remains on room air. DuoNebs every 6 hour, budesonide twice daily. Oxygen supplementation keeping saturation over 88%. Most likely patient should be discharged on longstanding inhalers. (3) Hyperthyroidism: Appreciate thyroid panel and thyroid ultrasound. Start on methimazole 10 mg oral daily. Most likely will repeat a thyroid panel and thyroid ultrasound in next 6 months. Will arrange follow-up with endocrine as an outpatient. Switch to beta-sonu. (4) Thyroid nodule: (5) Hypertension: Goal blood pressure less than 140/90 mmHg. Blood pressures continue to remain elevated. Start on Coreg 12.5 mg twice daily, amlodipine 10 mg oral daily. Will uptitrate as for goal blood pressures. (6) Unexplained weight loss: Could be secondary to undiagnosed COPD. Patient is a significant family history of cancers. Last colonoscopy within last 10 years negative. Thyroid panel consistent with hyperthyroidism. Thyroid ultrasound appreciated. A1c, lipid panel, vitamin B12 and folate levels appreciated. (7) Elevated alkaline phosphatase level: (8) Protein-energy malnutrition: (9) Transaminitis: Plan CODE STATUS: Discussed in detail with the patient. Full code. Diet as per primary team. Anticoagulation as per primary team. Protonix for PUD prophylaxis. Thank you for involving us in care of Ms. Champion. Please call with any questions. Attestations Medical Necessity Statement*: Requires further hospitalization for above defined care, postoperative care Diagnoses Cholecystitis K81.9 COPD (chronic obstructive pulmonary disease) with emphysema J43.9 Hyperthyroidism E05.90 Thyroid nodule E04.1 Hypertension I10 Unexplained weight loss R63.4 Elevated alkaline phosphatase level R74.8 Protein-energy malnutrition E46 Transaminitis R74.01
[2022-11-21] MEDS: amlodipine 5 mg Tablet PO (13:39)
[2022-11-21] MEDS: methIMAzole 5 MG Tablet 10 MG PO (13:39)
[2022-11-21] MEDS: HYDROmorphone 1 mg/mL INJ 1 mL IVP (15:30)
--- NOTE | 2022-11-21 15:48 | US_ITS ---
WS: [id number] THYROID ULTRASOUND HISTORY: hyperthyroidism COMPARISON: None available. Right lobe: 1.6 cm x 2.0 cm x 3.0 cm (w x ap x l). Volume: 5.0 cm3. Mildly enlarged gland. Hypoechoic nodule superior pole measures 1.1 x 0.7 x 1.4 cm. No echogenic foci . There is an additional hyperechoic nodule in the inferior pole measuring 0.7 x 0.8 x 1.0 cm. Gland is very coarsened and heterogeneous. Mild increased vascularity. Left lobe: 2.1 cm x 1.6 cm x 4.7 cm (w x ap x l). Volume: 8.1 cm3. Mildly enlarged gland with multiple small hypoechoic nodules and heterogeneity. Mildly increased vasc ularity. Isthmus: 0.3 cm. US/US thyroid 87066 IMPRESSION: 1. Mildly enlarged and heterogeneous thyroid gland with multiple nodules. 2. Largest nodule superior pole RIGHT thyroid measures 1.1 x 0.7 x 1.4 cm. 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 3. Increased vascularity throughout the gland with enlargement. Consider Grave s' disease and Lorna's thyroiditis.
--- NOTE | 2022-11-21 16:11 | PM.PN ---
Subjective Subjective: Patient seen and examined. She is having issues with pain control. Her white blood cell count has gone up and she is tachycardic. Vitals/I&O/Wt Last Vital Signs Temp 99.2 F 11/21/22 15:21 Pulse 108 H 11/21/22 15:21 Resp 16 11/21/22 15:30 BP 176/62 11/21/22 15:21 Pulse Ox 94 11/21/22 15:21 O2 Del Method Room Air 11/21/22 15:21 O2 Flow Rate 2 11/21/22 03:51 11/21/22 11/21/22 11/21/22 06:59 14:59 22:59 Intake Total 1130 / 3890 220 / 220 Balance 1130 / 3880 220 / 220 Physical Exam Narrative: General: No acute distress, awake alert and oriented x3 Abdomen: Soft, nondistended, appropriately tender to palpation, no guarding rebound or masses, incisions intact without erythema or exudate Urinary Catheter Management: Straight: Cath Placed During This Visit: no Data 11/21/22 05:00 11/21/22 05:00 Micro: Microbiology 11/19/22 18:09 Blood Culture - Preliminary Blood NEGATIVE TO DATE 11/19/22 18:00 Blood Culture - Preliminary Blood NEGATIVE TO DATE A&P Assessment and plan (1) S/P laparoscopic cholecystectomy: Plan Pain control Repeat labs in the morning Likely discharge tomorrow Attestations Medical Necessity Statement*: Patient requires at least 1 more night in the hospital for pain control and antibiotics status post laparoscopic cholecystectomy Coding Level of Care Code Acute Code for Chg Fwd Diagnoses S/P laparoscopic cholecystectomy Z90.49
[2022-11-21] MEDS: oxyCODONE 20 mg ER (12 HR) Tablet 40 MG PO (17:24)
[2022-11-21] MEDS: carvedilol 12.5 mg Tablet PO (17:24)
[2022-11-22] VITALS (11 sets, daily range): BP systolic 117–132; BP diastolic 55–58; PULSE 76–103; RESP 14–20; TEMP 36.5–36.7; O2SAT 94–98
[2022-11-22] MEDS: HYDROmorphone 1 mg/mL INJ 1 mL IVP ×2 (00:12→20:47)
[2022-11-22 03:30] LABS: Basophils % 0.1 %; Eosinophils % 0.1 %; Hemoglobin 11.4 g/dL (11.5-15.3); Lymphocytes # 2.2 10^3/uL (0.8-4.8); Mean Corpuscular HGB Conc 31.7 g/dL (30.0-36.0); Mean Corpuscular Hemoglobin 27.5 pg (28.0-34.0); Mean Platelet Volume 10.8 fL (7.4-10.4); Monocytes # 0.9 10^3/uL (0.2-0.9); Monocytes % 8.9 %; Neutrophils # 6.45 10^3/uL (1.8-7.7); Neutrophils % 67.6 %; Nucleated Red Blood Cells % 0 %; Platelet Count 139 10^3/cmm (130-400); Red Blood Count 4.14 10^6/uL (4.1-5.3); Red Cell Distribution Width 14.3 % (12.1-15.1); White Blood Count 9.6 10^3/uL (4.0-10.0)
[2022-11-22] MEDS: piperacillin-tazobactam 3.375 GM in sodium chloride 0.9% (plus) 50 ML IV ×3 (03:34→17:29)
--- NOTE | 2022-11-22 08:58 | PC.SOCIAL ---
IMM update IMM updated with patient. Verbalized an understanding. Copy Pg 2 provided. Initialled, dated, timed, and placed in chart.
[2022-11-22 09:04] LABS: Alanine Aminotransferase 109 U/L (0-33); Albumin Level 3.1 g/dL (3.5-5.2); Alkaline Phosphatase 231 U/L (35-105); Anion Gap 10.6 (5-19); Aspartate Amino Transferase 131 U/L (0-32); Blood Urea Nitrogen 19 mg/dL (8-23); Calcium 8.9 mg/dL (8.5-10.5); Carbon Dioxide 29 mmol/L (22-29); Chloride 101 mmol/L (98-107); Globulin 2.6 g/dL (1.3-4.6); Glomerular Filtration Rate 159.7 mL/min (90-130); Glucose 141 mg/dL (65-115); Osmolality Calculated 291 mOsm/kg (285-295); Sodium 138 mmol/L (136-145); Total Bilirubin 1.3 mg/dL (0.15-1.2); Total Protein 5.7 g/dL (6.6-8.7)
[2022-11-22 09:36] LABS: Potassium 2.6 mmol/L (3.5-5.1)
[2022-11-22] MEDS: oxyCODONE 20 mg ER (12 HR) Tablet 40 MG PO ×2 (09:43→17:28)
[2022-11-22] MEDS: methIMAzole 5 MG Tablet 10 MG PO (09:43)
[2022-11-22] MEDS: carvedilol 12.5 mg Tablet PO ×2 (09:44→17:29)
[2022-11-22] MEDS: amlodipine 5 mg Tablet PO (09:44)
[2022-11-22] MEDS: nicotine 14 mg Patch 1 PATCH TRANSDERMA (09:44)
[2022-11-22] MEDS: potassium chloride ER 20 mEq Tablet 80 MEQ PO (11:34)
--- NOTE | 2022-11-22 13:05 | PM.PN ---
Subjective Subjective: Pain much improved today. Patient reports some nausea Vitals/I&O/Wt Last Vital Signs Temp 98.1 F 11/22/22 12:00 Pulse 89 11/22/22 12:00 Resp 16 11/22/22 12:00 BP 121/55 11/22/22 12:00 Pulse Ox 94 11/22/22 12:00 O2 Del Method Room Air 11/22/22 12:00 O2 Flow Rate 2 11/21/22 03:51 11/21/22 11/22/22 11/22/22 22:59 06:59 14:59 Intake Total 290 / 510 50 / 560 290 / 290 Output Total 650 / 650 Balance 290 / 510 50 / 560 -360 / -360 Physical Exam Narrative: General: No acute distress, awake alert and oriented x3 Abdomen: Soft, mild distention, appropriately tender to palpation, no guarding rebound or masses, incisions intact without erythema or exudate Urinary Catheter Management: Straight: Cath Placed During This Visit: no Data 11/22/22 02:49 11/22/22 02:40 A&P Assessment and plan (1) S/P laparoscopic cholecystectomy: (2) Hyperbilirubinemia: Plan Pain control Repeat labs in the morning Hopefully discharge tomorrow Attestations Medical Necessity Statement*: Patient requires at least 1 more night in the hospital for observation after laparoscopic cholecystectomy. Her LFTs are going up. Coding Level of Care Code Acute Code for Chg Fwd Diagnoses S/P laparoscopic cholecystectomy Z90.49 Hyperbilirubinemia E80.6
[2022-11-22] MEDS: potassium chloride premix 100 ML 25 MEQ IV (14:55)
--- NOTE | 2022-11-22 17:11 | PC.NURSE ---
Patient refused IV potassium, but is willing to continue PO potassium.
[2022-11-22] MEDS: budesonide 0.5 mg/2 mL Neb INHALATION (20:03)
[2022-11-22] MEDS: ipratropium-albuterol 3 mL Neb INHALATION (20:04)
[2022-11-23] VITALS (7 sets, daily range): BP systolic 118–133; BP diastolic 44–68; PULSE 79–109; RESP 16–20; TEMP 36.9–37.2; O2SAT 92–96
[2022-11-23] MEDS: ipratropium-albuterol 3 mL Neb INHALATION ×2 (02:04→08:48)
[2022-11-23] MEDS: piperacillin-tazobactam 3.375 GM in sodium chloride 0.9% (plus) 50 ML IV (02:52)
[2022-11-23 04:56] LABS: Basophils % 0.2 %; Eosinophils % 0.6 %; Hematocrit 33.9 % (37.0-47.0); Hemoglobin 10.5 g/dL (11.5-15.3); Lymphocytes # 1.2 10^3/uL (0.8-4.8); Lymphocytes % 23.3 %; Mean Corpuscular Hemoglobin 27.3 pg (28.0-34.0); Mean Corpuscular Volume 88.1 fl (81-99); Mean Platelet Volume 11.7 fL (7.4-10.4); Monocytes # 0.2 10^3/uL (0.2-0.9); Monocytes % 4.1 %; Neutrophils # 3.51 10^3/uL (1.8-7.7); Neutrophils % 71.2 %; Nucleated Red Blood Cells % 0 %; Platelet Count 112 10^3/cmm (130-400); Red Blood Count 3.85 10^6/uL (4.1-5.3); Red Cell Distribution Width 14.3 % (12.1-15.1); White Blood Count 4.9 10^3/uL (4.0-10.0)
[2022-11-23 05:15] LABS: Alanine Aminotransferase 63 U/L (0-33); Albumin Level 2.8 g/dL (3.5-5.2); Alkaline Phosphatase 188 U/L (35-105); Aspartate Amino Transferase 41 U/L (0-32); Blood Urea Nitrogen 17 mg/dL (8-23); Calcium 8.4 mg/dL (8.5-10.5); Carbon Dioxide 26 mmol/L (22-29); Chloride 101 mmol/L (98-107); Globulin 2.4 g/dL (1.3-4.6); Glomerular Filtration Rate 159.7 mL/min (90-130); Glucose 94 mg/dL (65-115); Osmolality Calculated 279 mOsm/kg (285-295); Sodium 134 mmol/L (136-145); Total Bilirubin 0.8 mg/dL (0.15-1.2); Total Protein 5.2 g/dL (6.6-8.7)
[2022-11-23] MEDS: budesonide 0.5 mg/2 mL Neb INHALATION (08:48)
[2022-11-23] MEDS: oxyCODONE 20 mg ER (12 HR) Tablet 40 MG PO (09:09)
[2022-11-23] MEDS: carvedilol 12.5 mg Tablet PO (09:10)
[2022-11-23] MEDS: nicotine 14 mg Patch 1 PATCH TRANSDERMA (09:10)
[2022-11-23] MEDS: methIMAzole 5 MG Tablet 10 MG PO (09:10)
[2022-11-23] MEDS: amlodipine 5 mg Tablet PO (09:10)
--- NOTE | 2022-11-23 09:30 | PM.DCS ---
Discharge Providers Date of Admission: 11/19/22 17:34 Date of Discharge: November 23, 2022 Attending Provider at Admission: Byron Bliss DO Attending Provider at Discharge: Byron Bliss DO Primary Care Provider: Storm Menchaca DO Diagnoses at Discharge Discharge Diagnosis (1) S/P laparoscopic cholecystectomy: Status: Acute (2) Hyperbilirubinemia: Status: Acute Reason for Visit Reason for Visit: N/V High BP, High HR Hospital Course Hospital Course This is a very pleasant 67-year-old female who presents to the hospital with gallbladder dysfunction. She was found to have an extremely large gallbladder that was folded upon itself. She underwent laparoscopic cholecystectomy and was discharged home in good condition 2 days later. Physical Exam Narrative: General : Patient is well developed , no acute distress, oriented x3 Head : Normal cephalic, a-traumatic. Ears : Pinnae and external canal are normal. Hearing is normal. Eyes : PERRLA, Sclera and injection are normal. No conjunctival discharge. Nose : Mucous membranes are without erythema. Throat : buccal mucosa is normal, gums are without significant recession or hypertrophy. Lungs : Equal chest rise bilaterally, no use of accessory muscles, trachea is midline. Cor : Rate and rhythm are normal. Abdomen : Soft, mildly distended, appropriately tender, no g/r/m Incisions intact without erythema or exudate Extremities : No edema, no cyanosis or clubbing, dorsalis pedis pulses are present bilaterally, non-tender to palpation of calves. Upper extremities are normal bilaterally. Back : non-tender to palpation, no CVA tenderness. Neuro : CN II - XII intact, Upper and lower extremities have equal and full strength Urinary Catheter Management: Straight: Cath Placed During This Visit: no Discharge Data Studies Completed and Pending Completed Studies During Hospitalization Category Date Time Status XR chest 1V portable [id number] Urgent Exams 11/19/22 11:26 Completed Pathology: Surgical [PTH] Routine Pth 11/20/22 16:19 Completed CV. echo complete* [id number] Routine Ultrasound 11/20/22 17:42 Completed US gall bladder [id number] Stat Ultrasound 11/19/22 14:01 Completed US thyroid [id number] Routine Ultrasound 11/21/22 15:48 Completed Pending at discharge Category Date Time Status Blood Culture Stat Lab 11/19/22 18:09 Results Urinalysis Routine Lab 11/19/22 17:34 Ordered Radiology Impressions Chest X-Ray 11/19/22 11:26 IMPRESSION: No acute findings. Gallbladder Ultrasound 11/19/22 14:01 IMPRESSION: 1. Hydropic gallbladder with layering stones and sludge. Mild gallbladder wall thickening. Gallbladder was difficult to identify on the prior CT. In hindsight the gallbladder is present and does contain some stones and sludge also. No pericholecystic fluid. 2. The common bile duct is not dilated. Thyroid Ultrasound 11/21/22 15:48 IMPRESSION: 1. Mildly enlarged and heterogeneous thyroid gland with multiple nodules. 2. Largest nodule superior pole RIGHT thyroid measures 1.1 x 0.7 x 1.4 cm. Consider yearly follow-up evaluation by ultrasound. 3. Increased vascularity throughout the gland with enlargement. Consider Graves' disease and Lorna's thyroiditis. Laboratory Results WBC 4.9 10^3/uL (4.0-10.0) 11/23/22 04:24 RBC 3.85 10^6/uL (4.1-5.3) L 11/23/22 04:24 Hgb 10.5 g/dL (11.5-15.3) L 11/23/22 04:24 Hct 33.9 % (37.0-47.0) L 11/23/22 04:24 MCV 88.1 fl (81-99) 11/23/22 04:24 MCH 27.3 pg (28.0-34.0) L 11/23/22 04:24 MCHC 31.0 g/dL (30.0-36.0) 11/23/22 04:24 RDW 14.3 % (12.1-15.1) 11/23/22 04:24 Plt Count 112 10^3/cmm (130-400) L 11/23/22 04:24 MPV 11.7 fL (7.4-10.4) H 11/23/22 04:24 Neut % (Auto) 71.2 % 11/23/22 04:24 Lymph % (Auto) 23.3 % 11/23/22 04:24 Carson % (Auto) 4.1 % 11/23/22 04:24 Eos % (Auto) 0.6 % 11/23/22 04:24 Baso % (Auto) 0.2 % 11/23/22 04:24 Neut # (Auto) 3.51 10^3/uL (1.8-7.7) 11/23/22 04:24 Lymph # (Auto) 1.2 10^3/uL (0.8-4.8) 11/23/22 04:24 Carson # (Auto) 0.2 10^3/uL (0.2-0.9) 11/23/22 04:24 Eos # (Auto) 0.0 10^3/uL (0.0-0.8) 11/23/22 04:24 Baso # (Auto) 0.0 10^3/uL (0.0-0.1) 11/23/22 04:24 Nucleated RBC % (auto) 0 % 11/23/22 04:24 Nucleated RBCs # 0.0 /100WBC 11/23/22 04:24 Sodium 134 mmol/L (136-145) L 11/23/22 04:24 Potassium 4.0 mmol/L (3.5-5.1) 11/23/22 04:24 Chloride 101 mmol/L (98-107) 11/23/22 04:24 Carbon Dioxide 26 mmol/L (22-29) 11/23/22 04:24 Anion Gap 11.0 (5-19) 11/23/22 04:24 BUN 17 mg/dL (8-23) 11/23/22 04:24 Creatinine 0.4 mg/dL (0.5-0.9) L 11/23/22 04:24 GFR Calculation 159.7 mL/min (90-130) H 11/23/22 04:24 Glucose 94 mg/dL (65-115) 11/23/22 04:24 Estimat Average Glucose 114 11/20/22 03:59 Hemoglobin A1c 5.6 % (4.0-6.0) 11/20/22 03:59 Calculated Osmolality 279 mOsm/kg (285-295) L 11/23/22 04:24 Calcium 8.4 mg/dL (8.5-10.5) L 11/23/22 04:24 Iron 130 ug/dL (37-145) 11/19/22 18:09 TIBC 251 mcg/dl 11/19/22 18:09 % Saturation 51.7 % (20-50) H 11/19/22 18:09 Unsat Iron Binding 121 ug/dL (112-347) 11/19/22 18:09 Total Bilirubin 0.8 mg/dL (0.15-1.2) 11/23/22 04:24 AST 41 U/L (0-32) H 11/23/22 04:24 ALT 63 U/L (0-33) H 11/23/22 04:24 Alkaline Phosphatase 188 U/L (35-105) H 11/23/22 04:24 Troponin T Baseline 9 ng/L (0-10) 11/19/22 12:38 Troponin T 120 Minute 9.35 ng/L (0-10) 11/19/22 14:35 Delta Troponin T 0.35 ABS# (0-10) 11/19/22 14:35 Troponin T Hi Sens 6Hr 12.11 ng/L (0-10) H 11/19/22 18:09 Troponin T Hi Sens 6Hr Delta 3.11 ng/L (0-12) 11/19/22 18:09 NT-Pro-B Natriuret Pep 1170 pg/mL (0-125) H 11/19/22 12:38 Total Protein 5.2 g/dL (6.6-8.7) L 11/23/22 04:24 Albumin 2.8 g/dL (3.5-5.2) L 11/23/22 04:24 Globulin 2.4 g/dL (1.3-4.6) 11/23/22 04:24 Triglycerides 81 mg/dL (0-150) 11/20/22 03:59 Cholesterol 150 mg/dL (0-200) 11/20/22 03:59 LDL Cholesterol, Calc 77 mg/dL (50-129) 11/20/22 03:59 Total VLDL Cholesterol 16 mg/dL (0-30) 11/20/22 03:59 HDL Cholesterol 57 mg/dL (60-100) L 11/20/22 03:59 Cholesterol/HDL Ratio 2.63 mg/dL (0.0-4.40) 11/20/22 03:59 Vitamin B12 853 pg/mL (232-1245) 11/19/22 18:09 Folate 10.7 ng/mL (4.8-37.3) 11/20/22 03:59 Procalcitonin 0.17 ng/mL (0-0.5) 11/19/22 18:09 TSH 0.01 uIU/mL (0.27-4.20) L 11/19/22 18:09 Free T4 5.64 ng/dL (0.82-1.77) H 11/20/22 03:59 Free T3 9.6 PG/ML (2.0-4.4) H 11/20/22 03:59 Random Cortisol 24.45 ug/dL (2.47-19.5) H 11/20/22 03:59 Procedures Performed Laparoscopic cholecystectomy Vitals Last Vital Signs Temp 99.0 F 11/23/22 05:28 Pulse 92 11/23/22 08:00 Resp 18 11/23/22 09:09 BP 133/68 11/23/22 07:57 Pulse Ox 95 11/23/22 08:00 O2 Del Method Room Air 11/23/22 08:00 O2 Flow Rate 2 11/22/22 20:00 Discharge Plan Discharge Patient Disposition: Home Condition: Stable Prescriptions: New OxyContin 40 mg tablet,oral only,ext.rel.12 hr 40 mg PO BID Qty: 10 0RF Continued fluticasone propionate [Allergy Relief (fluticasone)] 50 mcg/actuation spray,suspension 1 spray intranasal BID PRN (Reason: Allergy Symptoms) ondansetron 4 mg tablet,disintegrating 4 mg PO Q8H PRN (Reason: nausea and vomiting) Qty: 14 0RF potassium chloride 10 mEq capsule, extended release 10 meq PO BID Qty: 14 0RF Rx Instructions: rx filled 11/19/22 (not started as of 11/19/22) nitroglycerin 0.4 mg tablet, sublingual 0.4 mg sublingual Q5M PRN (Reason: chest pain) Qty: 25 1RF Rx Instructions: do not exceed 3 doses per episode Unknown Blood Pressure Pill 1 tab PO DAILY Held oxycodone [OxyContin] 40 mg tablet,oral only,ext.rel.12 hr 40 mg PO BID@ Hold Instructions: Resume on 11/28/22. Discharge Orders: Discharge Order (Routine); Ordered 11/23/22 Ordered By: Byron Bliss Referrals: Storm Menchaca DO [Primary Care Provider] - 4-7 days (message sent to clinic 11/21 @ 2806) Dinora Ritter MD [Physician] - 1 month (New diagnosis of hyperthyroidism with thyroid nodules consistent with Graves' disease message sent to clinic 11/21/22 @5006) Byron Bliss DO [Physician] - 2 weeks Discharge Diet: Advance as tolerated Discharge Activity: Resume usual activity Patient Instructions: Opioid Safety, Post Anesthesia Care Activity Restrictions/Additional Instructions: Do not soak incisions underwater for 2 weeks. Shower daily. Discharge Attestations Time Spent in Discharge Care*: less than 30 min Quality Metrics Clinical Quality Measures [ No reported AMI, CVA or VTE this stay] Coding Level of Care Code Acute Code for Chg Fwd Diagnoses S/P laparoscopic cholecystectomy Z90.49 Hyperbilirubinemia E80.6
--- NOTE | 2022-11-23 12:14 | P.PN_ITS ---
Subjective Subjective: No acute events overnight. Tolerating regular diet. Ambulating. Family at bedside. Denies any new complaints. Remains on room air. Has remained hemodynamically stable and afebrile. Lab work appreciated. Plan to be discharged as per primary team. Vitals/I&O/Wt Last Vital Signs Temp 99.0 F 11/23/22 11:22 Pulse 92 11/23/22 11:22 Resp 18 11/23/22 11:22 BP 133/68 11/23/22 11:22 Pulse Ox 95 11/23/22 11:22 O2 Del Method Room Air 11/23/22 08:00 O2 Flow Rate 2 11/22/22 20:00 11/22/22 11/23/22 11/23/22 22:59 06:59 14:59 Intake Total 847.917 / 1137.917 550 / 1687.917 Output Total 200 / 850 Balance 847.917 / 487.917 350 / 837.917 Physical Exam Narrative: General: Mild distress because of abdominal pain, AOx3, cachectic, chronically s ick appearing HEENT: PERRLA, pupils bilaterally equal and reactive Chest: Bilateral bronchial breath sounds with diffuse rhonchi all over lung woods CVS: S1-S2 regular, soft pansystolic murmur at fourth intercostal left parasternal region, tachycardia, no gallops, no rubs Abdomen: Soft, nontender, no organomegaly, bowel sounds present Neuro: No focal deficits, no facial deformity, AO x3, power 5/5 in all limbs Urinary Catheter Management: Straight: Cath Placed During This Visit: no Data 11/23/22 04:24 11/23/22 04:24 Micro: Microbiology 11/19/22 21:55 MRSA Culture - Final Nose A&P Assessment and plan (1) Cholecystitis: Postcholecystectomy day 3 Diet, physical therapy, antibiotics, anticoagulation, pain medication as per primary team. Can stop IV fluids. Patient is already on regular diet. (2) COPD (chronic obstructive pulmonary disease) with emphysema: Undiagnosed. Seen on CTA. Remains on room air. DuoNebs every 6 hour, budesonide twice daily. Oxygen supplementation keeping saturation over 88%. Most likely patient should be discharged on longstanding inhalers. (3) Hyperthyroidism: Appreciate thyroid panel and thyroid ultrasound. Start on methimazole 10 mg oral daily. Most likely will repeat a thyroid panel and thyroid ultrasound in next 6 months. Will arrange follow-up with endocrine as an outpatient. Switch to beta-sonu. (4) Thyroid nodule: (5) Hypertension: Goal blood pressure less than 140/90 mmHg. Blood pressures continue to remain elevated. Start on Coreg 12.5 mg twice daily, amlodipine 10 mg oral daily. Will uptitrate as for goal blood pressures. (6) Unexplained weight loss: Could be secondary to undiagnosed COPD. Patient is a significant family history of cancers. Last colonoscopy within last 10 years negative. Thyroid panel consistent with hyperthyroidism. Thyroid ultrasound appreciated. A1c, lipid panel, vitamin B12 and folate levels appreciated. (7) Elevated alkaline phosphatase level: (8) Protein-energy malnutrition: (9) Transaminitis: Plan CODE STATUS: Discussed in detail with the patient. Full code. Diet as per primary team. Anticoagulation as per primary team. Protonix for PUD prophylaxis. Patient is stable to be discharged from medicine side. She should be going home with methimazole 10 mg oral daily, referral for endocrinology. She should have a repeat thyroid panel done in 1 month. She should also be going home with inhaler Spiriva to be used daily. She should see her primary care provider within next 1 week. No other changes in her oral chronic medications. Thank you for involving us in care of Ms. Champion. Please call with any questions. Attestations Medical Necessity Statement*: Plan to be discharged to have a primary team. Diagnoses Cholecystitis K81.9 COPD (chronic obstructive pulmonary disease) with emphysema J43.9 Hyperthyroidism E05.90 Thyroid nodule E04.1 Hypertension I10 Unexplained weight loss R63.4 Elevated alkaline phosphatase level R74.8 Protein-energy malnutrition E46 Transaminitis R74.01
--- NOTE | 2022-11-23 12:32 | PC.NURSE ---
PATIENT NOTIFIED OF ADDED MEDICATION TO [employer] FROM [facility].
== END 2022-11-23 11:32 | disposition home or self-care (01) | DRG 418 ==
LOC: ER 17:38 → MEDSURG 18:19
PROVIDERS: Physician Assistant; Student in an Organized Health Care Education/Training Program; Admitting Provider Surgery; Emergency Provider Family Medicine; PCP Family Medicine; Visit Provider Surgery
PROC: 0FT44ZZ Resection of Gallbladder, Percutaneous Endoscopic Approach (ICD-10-PCS; CPT 47562; principal; 2022-11-20 11:30)
DX: K81.0 Acute cholecystitis (principal); E46 Unspecified protein-calorie malnutrition; Z68.1 Body mass index [BMI] 19.9 or less, adult; J43.9 Emphysema, unspecified; I10 Essential (primary) hypertension; F17.210 Nicotine dependence, cigarettes, uncomplicated; Z80.42 Family history of malignant neoplasm of prostate; Z80.49 Family history of malignant neoplasm of other genital organs; M41.9 Scoliosis, unspecified; R00.0 Tachycardia, unspecified; E05.90 Thyrotoxicosis, unspecified without thyrotoxic crisis or storm
CPT/HCPCS: 36415; 51702; 71045; 71275; 76536; 76705; 80053; 80061; 82533; 82607; 82746; 83036; 83540; 83550; 83690; 83880; 84145; 84439; 84443; 84481; 84484; 85025; 85378; 87040; 87641; 88304; 93005; 93306; 94640; 96365; 96375; 99285; J0330; J1100; J1170; J1200; J2270; J2405; J2543; J2704; J2710; J3010; J3480; J3490; J7030; J7626; Q9967

== ENCOUNTER → 2022-12-10 13:53 | Outpatient (BNVA) | payer MEDICARE, SELFPAY | PROVIDERS: PCP Family Medicine; Visit Provider Surgery | DX: Z98.890 Other specified postprocedural states (principal); Z90.49 Acquired absence of other specified parts of digestive tract | CPT/HCPCS: 99024 ==

== ENCOUNTER → 2023-01-02 13:52 | Outpatient (BNVA) | payer MEDICARE, SELFPAY | PROVIDERS: PCP Family Medicine; Visit Provider Internal Medicine | DX: Z09 Encounter for follow-up examination after completed treatment for conditions other than malignant neoplasm (principal); E05.90 Thyrotoxicosis, unspecified without thyrotoxic crisis or storm; E04.2 Nontoxic multinodular goiter | CPT/HCPCS: 83516; 86376; 86800; 99204 ==

== ENCOUNTER 2023-03-04 14:50 | Outpatient (CLI) | payer MEDICARE, SELFPAY ==
[2023-03-04 15:12] LABS: Basophils # 0.1 10^3/uL (0.0-0.1); Basophils % 0.8 %; Eosinophils # 0.1 10^3/uL (0.0-0.8); Eosinophils % 1.3 %; Hematocrit 46.7 % (36-47); Lymphocytes % 33.5 %; Mean Corpuscular HGB Conc 32.5 g/dL (30-55); Mean Corpuscular Hemoglobin 28.9 pg (27-33); Mean Corpuscular Volume 88.8 fl (85-98); Mean Platelet Volume 9.2 fL (7.4-10.4); Monocytes # 0.4 10^3/uL (0.2-0.9); Neutrophils # 3.41 10^3/uL (1.8-7.7); Neutrophils % 57.2 %; Nucleated Red Blood Cells % 0 %; Platelet Count 202 10^3/cmm (157-399); Red Blood Count 5.26 10^6/uL (3.85-5.65); Red Cell Distribution Width 15.5 % (12.1-15.1); White Blood Count 5.97 10^3/uL (3.29-11.43)
[2023-03-04 15:38] LABS: Alanine Aminotransferase 11 U/L (0-33); Albumin Level 4.4 g/dL (3.5-5.2); Alkaline Phosphatase 254 U/L (35-105); Anion Gap 11.5 (5-19); Aspartate Amino Transferase 18 U/L (0-32); Blood Urea Nitrogen 9 mg/dL (8-23); Calcium 8.8 mg/dL (8.5-10.5); Carbon Dioxide 30 mmol/L (22-29); Chloride 100 mmol/L (98-107); Free T4 Free Thyroxine 0.47 ng/dL (0.82-1.77); Globulin 3.2 g/dL (1.3-4.6); Glomerular Filtration Rate 99.7 mL/min (90-130); Glucose 132 mg/dL (65-115); Osmolality Calculated 285 mOsm/kg (285-295); Potassium 4.5 mmol/L (3.5-5.1); Sodium 137 mmol/L (136-145); Thyroid Stimulating Hormone 8.73 uIU/mL (0.27-4.20); Total Bilirubin 0.3 mg/dL (0.15-1.2); Total Protein 7.6 g/dL (6.6-8.7)
[2023-03-05 10:45] LABS: T3 Total 109 ng/dL (76-181)
[2023-03-06 09:35] LABS: Thyroglobulin AB <1 IU/mL (< or = 1)
[2023-03-06 11:19] LABS: Thyroid Peroxidase Antobodies 39 IU/mL (<9)
== END 2023-03-04 14:51 | disposition home or self-care (01) ==
LOC: LAB 14:52
PROVIDERS: PCP Family Medicine; Visit Provider Internal Medicine
DX: E05.90 Thyrotoxicosis, unspecified without thyrotoxic crisis or storm (principal)
CPT/HCPCS: 36415; 80053; 84439; 84443; 84480; 85025; 86376; 86800

== ENCOUNTER → 2023-03-05 13:13 | Outpatient (BNVA) | payer MEDICARE, SELFPAY | PROVIDERS: PCP Family Medicine; Visit Provider Internal Medicine | DX: Z09 Encounter for follow-up examination after completed treatment for conditions other than malignant neoplasm (principal); E05.90 Thyrotoxicosis, unspecified without thyrotoxic crisis or storm; E04.2 Nontoxic multinodular goiter | CPT/HCPCS: 99214 ==

== ENCOUNTER 2023-03-19 13:11 | Outpatient (CLI) | payer MEDICARE, SELFPAY ==
[2023-03-19 14:29] LABS: Free T4 Free Thyroxine 1.14 ng/dL (0.82-1.77); Thyroid Stimulating Hormone 0.22 uIU/mL (0.27-4.20)
[2023-03-20 12:59] LABS: T3 Total 172 ng/dL (76-181)
== END 2023-03-19 13:12 | disposition home or self-care (01) ==
PROVIDERS: PCP Family Medicine; Visit Provider Internal Medicine
DX: Z09 Encounter for follow-up examination after completed treatment for conditions other than malignant neoplasm (principal); E04.2 Nontoxic multinodular goiter; E05.90 Thyrotoxicosis, unspecified without thyrotoxic crisis or storm
CPT/HCPCS: 36415; 84439; 84443; 84480

== ENCOUNTER 2023-05-12 15:37 | Outpatient (CLI) | payer MEDICARE, SELFPAY ==
[2023-05-12 16:40] LABS: Free T4 Free Thyroxine 0.89 ng/dL (0.82-1.77)
== END 2023-05-12 15:38 | disposition home or self-care (01) ==
LOC: LAB 15:38
PROVIDERS: PCP Family Medicine; Visit Provider Internal Medicine
DX: Z09 Encounter for follow-up examination after completed treatment for conditions other than malignant neoplasm (principal)
CPT/HCPCS: 36415; 84439; 84443

== ENCOUNTER 2023-07-08 15:38 | Outpatient (CLI) | payer MEDICARE, SELFPAY ==
[2023-07-08 16:48] LABS: Thyroid Stimulating Hormone 0.89 uIU/mL (0.27-4.20)
[2023-07-08 18:46] LABS: Free T4 Free Thyroxine 1.19 ng/dL (0.82-1.77)
[2023-07-10 10:27] LABS: T3 Total 110 ng/dL (76-181)
== END 2023-07-08 15:39 | disposition home or self-care (01) ==
LOC: LAB 15:40
PROVIDERS: PCP Family Medicine; Visit Provider Internal Medicine
DX: E46 Unspecified protein-calorie malnutrition (principal); E05.90 Thyrotoxicosis, unspecified without thyrotoxic crisis or storm; E04.2 Nontoxic multinodular goiter
CPT/HCPCS: 84439; 84443; 84480

== ENCOUNTER 2023-09-10 13:59 | Outpatient (CLI) | payer MEDICARE, SELFPAY ==
[2023-09-10 14:36] LABS: Basophils % 0.8 %; Eosinophils # 0.1 10^3/uL (0.0-0.8); Eosinophils % 1.5 %; Hematocrit 40.5 % (36-47); Lymphocytes # 1.2 10^3/uL (0.8-4.8); Lymphocytes % 25.8 %; Mean Corpuscular HGB Conc 32.8 g/dL (30-55); Mean Corpuscular Hemoglobin 29.7 pg (27-33); Mean Corpuscular Volume 90.4 fl (85-98); Mean Platelet Volume 9.3 fL (7.4-10.4); Monocytes # 0.4 10^3/uL (0.2-0.9); Monocytes % 8.3 %; Neutrophils # 2.99 10^3/uL (1.8-7.7); Neutrophils % 63.4 %; Nucleated Red Blood Cells % 0 %; Platelet Count 199 10^3/cmm (157-399); Red Blood Count 4.48 10^6/uL (3.85-5.65); Red Cell Distribution Width 13.8 % (12.1-15.1); White Blood Count 4.72 10^3/uL (3.29-11.43)
[2023-09-10 15:10] LABS: Magnesium 1.9 mg/dL (1.7-2.3); Thyroid Stimulating Hormone 1.85 uIU/mL (0.27-4.20)
[2023-09-10 15:48] LABS: Iron 80 ug/dL (37-145)
[2023-09-10 16:02] LABS: 25 Hydroxy Vitamin D 21 ng/mL (30-100)
== END 2023-09-10 14:00 | disposition home or self-care (01) ==
LOC: LAB 14:01
PROVIDERS: PCP Family Medicine; Visit Provider Internal Medicine
DX: E55.9 Vitamin D deficiency, unspecified (principal); E05.90 Thyrotoxicosis, unspecified without thyrotoxic crisis or storm; E04.2 Nontoxic multinodular goiter; E46 Unspecified protein-calorie malnutrition; M41.9 Scoliosis, unspecified; M81.0 Age-related osteoporosis without current pathological fracture; E03.9 Hypothyroidism, unspecified
CPT/HCPCS: 36415; 82306; 83540; 83735; 84439; 84443; 85025

== ENCOUNTER → 2023-09-11 11:30 | Outpatient (BNVA) | payer MEDICARE, SELFPAY | PROVIDERS: PCP Family Medicine; Visit Provider Internal Medicine | DX: E05.90 Thyrotoxicosis, unspecified without thyrotoxic crisis or storm (principal); E04.2 Nontoxic multinodular goiter; E55.9 Vitamin D deficiency, unspecified; E46 Unspecified protein-calorie malnutrition; Z68.1 Body mass index [BMI] 19.9 or less, adult | CPT/HCPCS: 99214 ==

== ENCOUNTER 2024-03-12 16:26 | Outpatient (CLI) | payer MEDICARE, SELFPAY ==
[2024-03-12 17:25] LABS: 25 Hydroxy Vitamin D 26 ng/mL (30-100); Thyroid Stimulating Hormone 0.01 uIU/mL (0.27-4.20)
[2024-03-12 20:09] LABS: Free T4 Free Thyroxine 1.44 ng/dL (0.82-1.77)
[2024-03-14 06:19] LABS: T3 Total 152 ng/dL (76-181)
== END 2024-03-12 16:27 | disposition home or self-care (01) ==
LOC: LAB 16:27
PROVIDERS: PCP Family Medicine; Visit Provider Internal Medicine
DX: E55.9 Vitamin D deficiency, unspecified (principal); E05.90 Thyrotoxicosis, unspecified without thyrotoxic crisis or storm; E04.2 Nontoxic multinodular goiter; E46 Unspecified protein-calorie malnutrition
CPT/HCPCS: 82306; 84439; 84443; 84480

== ENCOUNTER → 2024-03-15 11:15 | Outpatient (BNVA) | payer MEDICARE, SELFPAY | PROVIDERS: PCP Family Medicine; Visit Provider Internal Medicine | DX: E55.9 Vitamin D deficiency, unspecified (principal); E05.90 Thyrotoxicosis, unspecified without thyrotoxic crisis or storm; E04.2 Nontoxic multinodular goiter; E46 Unspecified protein-calorie malnutrition; Z68.20 Body mass index [BMI] 20.0-20.9, adult | CPT/HCPCS: 99214 ==

== ENCOUNTER → 2024-03-31 10:00 | Outpatient (BNVA) | payer MEDICARE, SELFPAY | PROVIDERS: PCP Family Medicine; Visit Provider Family Medicine | DX: E55.9 Vitamin D deficiency, unspecified (principal); M47.9 Spondylosis, unspecified; M25.541 Pain in joints of right hand; M25.542 Pain in joints of left hand; M48.8X9 Other specified spondylopathies, site unspecified; M54.42 Lumbago with sciatica, left side; M54.41 Lumbago with sciatica, right side; G89.29 Other chronic pain; R79.89 Other specified abnormal findings of blood chemistry | CPT/HCPCS: 80053; 82306; 82607; 82746; 84550; 85025; 85651; 86038; 86140; 86200; 86431 ==

== ENCOUNTER 2024-07-07 18:02 | Outpatient (CLI) | payer MEDICARE, SELFPAY ==
[2024-07-07 19:39] LABS: 25 Hydroxy Vitamin D 17 ng/mL (30-100); Thyroid Stimulating Hormone 0.22 uIU/mL (0.27-4.20)
[2024-07-07 20:12] LABS: Free T4 Free Thyroxine 1.06 ng/dL (0.82-1.77)
[2024-07-09 08:03] LABS: T3 Total 126 ng/dL (76-181)
== END 2024-07-07 18:03 | disposition home or self-care (01) ==
PROVIDERS: PCP Family Medicine; Visit Provider Internal Medicine
DX: E55.9 Vitamin D deficiency, unspecified (principal); E46 Unspecified protein-calorie malnutrition; E05.90 Thyrotoxicosis, unspecified without thyrotoxic crisis or storm; E04.2 Nontoxic multinodular goiter
CPT/HCPCS: 36415; 82306; 84439; 84443; 84480

== ENCOUNTER 2024-10-26 15:36 | Outpatient (CLI) | payer MEDICARE, SELFPAY ==
[2024-10-26 17:49] LABS: 25 Hydroxy Vitamin D 13 ng/mL (30-100); Thyroid Stimulating Hormone 1.38 uIU/mL (0.27-4.20)
[2024-10-26 20:58] LABS: Free T4 Free Thyroxine 1.15 ng/dL (0.82-1.77)
[2024-10-27 05:51] LABS: T3 Total 91 ng/dL (76-181)
== END 2024-10-26 15:37 | disposition home or self-care (01) ==
PROVIDERS: PCP Family Medicine; Visit Provider Internal Medicine
DX: E55.9 Vitamin D deficiency, unspecified (principal); E05.90 Thyrotoxicosis, unspecified without thyrotoxic crisis or storm; E04.1 Nontoxic single thyroid nodule; R63.4 Abnormal weight loss; E04.2 Nontoxic multinodular goiter; E46 Unspecified protein-calorie malnutrition
CPT/HCPCS: 36415; 82306; 84439; 84443; 84480

== ENCOUNTER → 2024-10-27 11:36 | Outpatient (BNVA) | payer MEDICARE, SELFPAY | PROVIDERS: PCP Family Medicine; Visit Provider Internal Medicine | DX: E55.9 Vitamin D deficiency, unspecified (principal); E46 Unspecified protein-calorie malnutrition; E05.90 Thyrotoxicosis, unspecified without thyrotoxic crisis or storm; E04.2 Nontoxic multinodular goiter | CPT/HCPCS: 99214 ==

== ENCOUNTER 2025-01-26 06:46 | Outpatient (CLI) | payer MEDICARE, SELFPAY | END 2025-01-26 06:47 | disposition home or self-care (01) | LOC: LAB 02-01 06:47 | PROVIDERS: PCP Family Medicine; Visit Provider Internal Medicine | DX: E55.9 Vitamin D deficiency, unspecified (principal); E46 Unspecified protein-calorie malnutrition; E04.2 Nontoxic multinodular goiter; E05.90 Thyrotoxicosis, unspecified without thyrotoxic crisis or storm | CPT/HCPCS: 36415; 82306; 84439; 84443; 99214 ==